=== PATIENT | female | born 1975 | race Caucasian/White ===

== ENCOUNTER 2024-07-14 06:42 | Inpatient (IN) ==
--- NOTE | 2024-07-07 15:44 | Anesthesiology Consultation ---
Date of Service July 07, 2024 Assessment & Plan (1) Encounter for pre-operative examination: - Check BSG, test DOS - Infectious disease screening: Per assessment on 07/07/24- No known recent infectious disease contacts or current infectious disease symptoms. - General surgery visit (07/06/24): "Adenocarcinoma of sigmoid colon.. Clearly this needs to be resected. I should be able to accomplish this laparosco pically. I would use this time to also repair her umbilical hernia and if visible we will biopsy the liver lesion.. We will proceed in the near future with laparoscopic sigmoid colon resection, repair of umbilical hernia, plans for liver biopsy if visible." - S/P colonoscopy (06/30/24): MAC at [facility]. No issues noted per post-op anesthesia progress note. - Hx chronic spontaneous urticaria/angioedema * Allergy visit (04/13/24): "If patient's symptoms are inadequately controlled on an optimized regimen of antihistamine medications, patient would be a candidate for Xolair therapy moving forward" * Allergy addendum (06/19/24): "Lab evaluation for a bradykinin mediated causes of angioedema (hereditary angioedema and/or acquired angioedema) resulted negative, further supporting the patient is likely experiencing symptoms of chronic spontaneous urticaria/angioedema, for which continuing on a high dose regimen of antihistamines and/or Xolair would be beneficial." - Case reviewed with Dr. Laurent. Nothing further needed preoperatively regarding hx angioedema from his perspective. Spoke with patient via phone 07/07/24- She states that she has not had recurrence in angioedema (facial swelling) in several months- controlled/no angioedema since last 04/13/24 allergy visit. I advised patient to continue antihistamine regimen as normally directed preoperatively- she voiced understanding. Chart Review Chart Review: Acceptable Risk for Surgery (pending evaluation DOS) and Patient NOT seen in Pre Admission Testing History Surgery Operation Date: 07/14/24 08:20 Proposed Procedures p Laparoscopic Sigmoid Colectomy, Liver Biopsy, Umbilical Hernia Repair - Anant Lucas, DO Height/Weight Height: 5 ft 1.5 in Weight: 107.501 kg Allergies Allergy/AdvReac Type Severity Reaction Status Date / Time ciprofloxacin Allergy Intermediate Palms and Verified 07/07/24 15:19 soles- redness, itchy Sulfa (Sulfonamide Allergy Intermediate Hives Verified 07/07/24 14:00 Antibiotics) sulfamethoxazole Allergy Intermediate Hives Verified 07/07/24 14:00 [From Bactrim] trimethoprim [From Bactrim] Allergy Intermediate Hives Verified 07/07/24 14:00 dog dander Allergy Mild Itching Verified 07/07/24 14:00 fluvoxamine [From Luvox] Allergy Mild Vomiting Verified 07/07/24 15:19 grass pollen Allergy Mild Itching Verified 07/07/24 14:00 mold Allergy Mild Congested Verified 07/07/24 14:00 fish oil Allergy Unknown Some Verified 07/07/24 15:19 contain oyster- positive allergy test oyster extract Allergy Unknown Positive Verified 07/07/24 15:19 allergy test doxycycline Allergy Hives Verified 07/07/24 14:00 shellfish derived Allergy Positive Verified 07/07/24 15:19 allergy test liraglutide [From Saxenda] AdvReac Intermediate Insomnia Verified 07/07/24 14:00 loratadine [From Claritin] AdvReac Intermediate Blurry Verified 07/07/24 15:19 vision, racing heart, asthma symptoms nitrofurantoin AdvReac Intermediate Pain Verified 07/07/24 14:00 Medications Home Medications Medication Instructions Recorded Confirmed Last Taken blood pressure test kit-large #1 ea 12/07/22 07/06/24 Unknown metformin 500 mg tablet 500 mg PO BID 90 days #180 tabs 10/21/23 07/07/24 06/29/24 ziprasidone HCl 60 mg capsule 80 mg PO BID 11/18/23 07/07/24 06/28/24 albuterol sulfate 90 mcg/actuation 1 inh inhalation Q4H PRN shortness 12/03/23 07/07/24 06/23/24 aerosol inhaler of breath or wheezing #8.5 grams prazosin 2 mg capsule 2 mg PO HS 01/30/24 07/07/24 06/29/24 prazosin 5 mg capsule 5 mg PO HS 01/30/24 07/07/24 06/29/24 hydroxyzine HCl 25 mg tablet 25 mg PO TID PRN itching #90 tabs 05/04/24 07/07/24 06/29/24 acetaminophen 500 mg tablet 1,000 mg PO Q6H PRN Pain 06/23/24 07/07/24 Unknown cholecalciferol (vitamin D3) 50 50 mcg PO HS 06/23/24 07/07/24 06/28/24 mcg (2,000 unit) capsule clonazepam 1 mg tablet 1 mg PO DAILY PRN Anxiety 06/23/24 07/07/24 Unknown dextroamphetamine-amphetamine ER 20 mg PO BID 06/23/24 07/07/24 06/29/24 20 mg 24hr capsule,extend release (Adderall XR) diclofenac sodium 1 % topical gel 2 g topical QID #200 grams 06/23/24 07/07/24 Unknown (Voltaren Arthritis Pain) famotidine 20 mg tablet 20 mg PO DAILY PRN Acid Reflux 06/23/24 07/07/24 06/29/24 ibuprofen 200 mg tablet 400 mg PO Q6H PRN Pain 06/23/24 07/07/24 Unknown levothyroxine 25 mcg tablet 25 mcg PO QAM 06/23/24 07/07/24 06/29/24 melatonin 10 mg tablet 20 mg PO HS 06/23/24 07/07/24 06/29/24 rosuvastatin 20 mg tablet 20 mg PO QAM 06/23/24 07/07/24 06/29/24 valerian root 500 mg capsule 500 mg PO HS PRN Sleep 06/23/24 07/07/24 06/28/24 hydrochlorothiazide 12.5 mg tablet 12.5 mg PO QAM #30 tabs 06/29/24 07/07/24 06/28/24 trazodone 100 mg tablet 100 mg PO HS PRN Sleep 06/29/24 07/07/24 06/29/24 cetirizine 10 mg tablet 20 mg PO BID 07/06/24 07/07/24 Unknown Past Medical History Medical History Adenocarcinoma of sigmoid colon ADHD Allergic rhinitis Allergic rhinitis due to animals Allergic rhinitis due to dust mite Allergic rhinitis due to pollen Anxiety Arthralgia Asthma Bipolar 2 disorder Chronic idiopathic urticaria Chronic rhinitis Diverticular disease Diverticulitis Most recent 05/27/2024 ([facility]), subsequent colonoscopy (06/30/24, [facility]) noting sigmoid divertiulosis Hyperlipidemia Hypothyroidism Morbid obesity Post traumatic stress disorder Prediabetes Taking metformin Sleep apnea "Mild" Currently in the process of being testing in outpatient facility (had home test and was found to have sleep apnea)- no device at this time Thrombocytosis Follows with S hematology "likely reactive- at least partially due to iron deficiency but also noted to have elevated inflammatory markers" per 01/09/24 hematology televisit Urinary incontinence Urinary urgency Uterine fibroid Past Family History Family History Mother Diabetes Heart disease Myocardial infarction Father Brain tumor Allergic rhinitis Hypertension Grandmother (Maternal) Allergic rhinitis Other No family history of adverse response to anesthesia Denies family history of Ovarian cancer Prostate cancer Breast cancer Colorectal cancer Past Surgical History Surgical History H/O colonoscopy (06/30/24) History of dilatation and curettage History of tooth extraction Social History Smoking Status: Current every day smoker Smoking cigarettes per day: vaping (advised on policy) Do You Dip or Chew Tobacco: No Smoking End Date: quit cigs in 2022 Hx Alcohol Use: No Hx Substance Use: No substance use type: does not use Lab Results Anesthesia Preop Results Results Anesthesia Widget: WBC 7.82 K/ul (4.8-10.8) 07/06/24 Hgb 12.7 g/dl (12.0-16.0) 07/06/24 Hct 39.5 % (37.0-47.0) 07/06/24 Plt 473 K/uL (130-400) H 07/06/24 Na 137 mmol/L (136-145) 07/06/24 K 4.1 mmol/L (3.5-5.1) 07/06/24 Cl 100 mmol/L (98-107) 07/06/24 CO2 29 mmol/L (21-32) 07/06/24 BUN 7 mg/dl (6-23) 07/06/24 Creat 0.73 mg/dl (0.6-1.2) 07/06/24 Glucose Level 115 mg/dl (70-99(Fasting)) H 07/06/24 PT 10.6 Seconds (9.0-12.0) 07/06/24 INR 1.0 (0.9-1.1) 07/06/24 TSH 1.859 uIu/ml (0.300-4.500) 03/13/25 HA1c 5.7 % (4.5-5.6) H 06/04/24 Testing Electrocardiogram Date: 07/06/24 NSR at 89bpm. Rightward axis. Other Testing Abd/Pelvis CT Date: 05/27/24 Impression: 1. Acute diverticulitis. There is no sign of perforation or abscess formation 2. Small liver mass, new or more apparent. This could represent a benign hemangioma more evident due to differences in the phase of contrast enhancement, though a metastasis or other lesion is also possible. Liver protocol abdominal MRI with and without intravenous contrast could be considered for further evaluation 3. Fatty infiltration of the liver and hepatomegaly 4. Minimal right pleural effusion and minimal amount of ascites 5. Umbilical hernia containing only fat Chest CT Date: 07/03/24 IMPRESSION: Atelectatic changes in right lung base with a small subpleural nodule in posterior segment of right lower lobe. Considering the history of malignancy, this needs to be followed up. Liver shows ill defined hypodense areas which needs further evaluation with proper contrast phase. No CT evidence of adrenal or bony metastasis.
--- NOTE | 2024-07-14 06:56 | History & Physical Bridge Note ---
Date of Service July 14, 2024 History & Physical Bridge Note I have examined the patient, reviewed the History & Physical and in the interval since the performance of the History & Physical I have noted the following changes of clinical significance: no changes noted
[2024-07-14] MEDS: LR 15ML/HR IV SCH (07:36)
[2024-07-14] MEDS ORDERED: LIDOCAINE 2% 2 ML VIAL/AMP(20MG/ML) INFIL ONE ×3 (08:11→11:17)
[2024-07-14] MEDS ORDERED: ROCURONIUM BROMIDE 10 MG/ML 5 ML VIAL IV ONE (08:11)
[2024-07-14] MEDS ORDERED: PROPOFOL IV EMULSION 10 MG/ML 20 ML VIAL IV ONE ×3 (08:11)
[2024-07-14] MEDS ORDERED: fentaNYL citrate PF 100 MCG/2 ML VIAL ONE (08:12)
[2024-07-14] MEDS ORDERED: MIDAZOLAM HCL 1 MG/ML 2ML VIAL ONE (08:13)
[2024-07-14] MEDS ORDERED: KETAMINE HCL 10MG/ML SYR ONE (08:14)
[2024-07-14] MEDS ORDERED: METOCLOPRAMIDE HCL INJ 5 MG/ML 2 ML VIAL IV PRN (08:24)
[2024-07-14] MEDS ORDERED: HYDROmorphone INJ 2 MG/ML SYR/VIAL IV PRN (08:24)
[2024-07-14] MEDS ORDERED: PROMETHAZINE HCL 6.25 MG in SODIUM CHLORIDE 0.9% 50 ML IV PRN (08:24)
[2024-07-14] MEDS ORDERED: ePHEDrine sulfate 50 MG/ML AMP IV PRN (08:24)
[2024-07-14] MEDS ORDERED: ATROPINE SULFATE 0.1 MG/ML 10ML SYR IV PRN (08:24)
[2024-07-14] MEDS ORDERED: HYDROmorphone INJ 1 MG/ML SYRINGE IV PRN (08:24)
[2024-07-14] MEDS ORDERED: ONDANSETRON INJ 2 MG/ML 2 ML VIAL IV PRN (08:24)
--- NOTE | 2024-07-14 08:27 | Anesthesiology Consultation ---
Date of Service July 14, 2024 Assessment & Plan Chart Review Chart Review: Acceptable Risk for Surgery Consults Requested none ASA ASA3 Proposed Anesthesia Anesthesia Type: General History Surgery Operation Date: 07/14/24 08:20 Proposed Procedures p Laparoscopic Sigmoid Colectomy, Liver Biopsy, Umbilical Hernia Repair - Anant Lucas, DO Height/Weight Height: 5 ft 1.5 in Weight: 108.3 kg Allergies Allergy/AdvReac Type Severity Reaction Status Date / Time ciprofloxacin Allergy Intermediate Palms and Verified 07/14/24 07:10 soles- redness, itchy Sulfa (Sulfonamide Allergy Intermediate Hives Verified 07/14/24 07:10 Antibiotics) sulfamethoxazole Allergy Intermediate Hives Verified 07/14/24 07:10 [From Bactrim] trimethoprim [From Bactrim] Allergy Intermediate Hives Verified 07/14/24 07:10 dog dander Allergy Mild Itching Verified 07/14/24 07:10 fluvoxamine [From Luvox] Allergy Mild Vomiting Verified 07/14/24 07:10 grass pollen Allergy Mild Itching Verified 07/14/24 07:10 mold Allergy Mild Congested Verified 07/14/24 07:10 fish oil Allergy Unknown Some Verified 07/14/24 07:10 contain oyster- positive allergy test oyster extract Allergy Unknown Positive Verified 07/14/24 07:10 allergy test doxycycline Allergy Hives Verified 07/14/24 07:10 shellfish derived Allergy Positive Verified 07/14/24 07:10 allergy test liraglutide [From Saxenda] AdvReac Intermediate Insomnia Verified 07/14/24 07:10 loratadine [From Claritin] AdvReac Intermediate Blurry Verified 07/14/24 07:10 vision, racing heart, asthma symptoms nitrofurantoin AdvReac Intermediate Pain Verified 07/14/24 07:10 Medications Home Medications Medication Instructions Recorded Confirmed Last Taken blood pressure test kit-large #1 ea 12/07/22 07/06/24 Unknown metformin 500 mg tablet 500 mg PO BID 90 days #180 tabs 10/21/23 07/14/24 07/12/24 ziprasidone HCl 60 mg capsule 80 mg PO BID 11/18/23 07/14/24 07/13/24 17:00 albuterol sulfate 90 mcg/actuation 1 inh inhalation Q4H PRN shortness 12/03/23 07/14/24 07/14/24 05:00 aerosol inhaler of breath or wheezing #8.5 grams prazosin 2 mg capsule 2 mg PO HS 01/30/24 07/14/24 07/13/24 22:00 prazosin 5 mg capsule 5 mg PO HS 01/30/24 07/14/24 07/13/24 22:00 hydroxyzine HCl 25 mg tablet 25 mg PO TID PRN itching #90 tabs 05/04/24 07/14/24 07/14/24 05:00 acetaminophen 500 mg tablet 1,000 mg PO Q6H PRN Pain 06/23/24 07/14/24 07/13/24 15:00 cholecalciferol (vitamin D3) 50 50 mcg PO HS 06/23/24 07/14/24 07/12/24 mcg (2,000 unit) capsule clonazepam 1 mg tablet 1 mg PO DAILY PRN Anxiety 06/23/24 07/14/24 07/13/24 21:00 dextroamphetamine-amphetamine ER 20 mg PO BID 06/23/24 07/14/24 07/13/24 11:00 20 mg 24hr capsule,extend release (Adderall XR) diclofenac sodium 1 % topical gel 2 g topical QID #200 grams 06/23/24 07/14/24 1 Month Ago (Voltaren Arthritis Pain) ~06/13/24 famotidine 20 mg tablet 20 mg PO DAILY PRN Acid Reflux 06/23/24 07/14/2407/13 14:00 ibuprofen 200 mg tablet 400 mg PO Q6H PRN Pain 06/23/24 07/14/24 07/13/24 15:00 levothyroxine 25 mcg tablet 25 mcg PO QAM 06/23/24 07/14/24 07/13/24 09:00 melatonin 10 mg tablet 20 mg PO HS 06/23/24 07/14/24 07/13/24 21:00 rosuvastatin 20 mg tablet 20 mg PO QAM 06/23/24 07/14/24 07/13/24 09:00 valerian root 500 mg capsule 500 mg PO HS PRN Sleep 06/23/24 07/14/24 1 Week Ago ~07/07/24 hydrochlorothiazide 12.5 mg tablet 12.5 mg PO QAM #30 tabs 04/10/1607/14/24 07/12/24 trazodone 100 mg tablet 100 mg PO HS PRN Sleep 06/29/24 07/14/24 07/13/24 22:00 cetirizine 10 mg tablet 20 mg PO BID 07/06/24 07/14/24 07/14/24 05:00 phenazopyridine 95 mg tablet 95 mg PO TID PRN cystitis 07/14/24 07/14/24 07/13/24 18:00 Active Medications Generic Name Dose Route Start Last Admin Trade Name Garry PRN Reason Stop Dose Admin Lactated Ringer's 1,000 mls @ 15 mls/hr 07/14/24 06:00 07/14/24 07:36 Lr IV 07/15/24 05:59 15 mls/hr .Q24H MARYLOU Administration NPO Date Last Intake of Fluids: 07/13/24 Time Last Intake of Fluids: 23:59 Date Last Intake of Solids: 07/13/24 Time Last Intake of Solids: 20:00 Past Medical History Medical History Adenocarcinoma of sigmoid colon ADHD Allergic rhinitis Allergic rhinitis due to animals Allergic rhinitis due to dust mite Allergic rhinitis due to pollen Anxiety Arthralgia Asthma Bipolar 2 disorder Chronic idiopathic urticaria Chronic rhinitis Diverticular disease Diverticulitis Most recent 05/27/2024 ([facility]), subsequent colonoscopy (06/30/24, [facility]) noting sigm oid divertiulosis Hyperlipidemia Hypothyroidism Morbid obesity Post traumatic stress disorder Prediabetes Taking metformin Sleep apnea "Mild" Currently in the process of being testing in outpatient facility (had home test and was found to have sleep apnea)- no device at this time Thrombocytosis Follows with [facility] hematology "likely reactive- at least partially due to iron deficiency but also noted to have elevated inflammatory markers" per 01/09/24 hematology televisit Urinary incontinence Urinary urgency Uterine fibroid Exercise / Class Metabolic Activity II 4-5 Yardwork/Stairs/Walk up hill Past Family History Family History Mother Diabetes Heart disease Myocardial infarction Father Brain tumor Allergic rhinitis Hypertension Grandmother (Maternal) Allergic rhinitis Other No family history of adverse response to anesthesia Denies family history of Ovarian cancer Prostate cancer Breast cancer Colorectal cancer Past Surgical History Surgical History H/O colonoscopy (06/30/24) History of dilatation and curettage History of tooth extraction Past Anesthesia History No Hx of Anesthesia Complications History of PONV No Hx of PONV Social History Smoking Status: Current every day smoker Smoking cigarettes per day: vaping (advised on policy) Do You Dip or Chew Tobacco: No Smoking End Date: quit cigs in 2022 Hx Alcohol Use: No Hx Substance Use: No substance use type: does not use Review of Systems ROS Unobtainable: All systems reviewed & are unremarkable except as noted in HPI & below Physical Exam Vital Signs Last Vital Signs Temp 36.7 C 07/14/24 07:07 Pulse 88 07/14/24 07:07 Resp 20 07/14/24 07:07 BP 120/79 07/14/24 07:07 Pulse Ox 95 07/14/24 07:07 O2 Del Method Room Air 07/14/24 07:07 Constitutional + obese; no acute distress ENMT Mouth: + TMJ abnormality Thyromental Distance: < 3.5 Finger Breadths Mallampati Class: II Neck normal visual inspection Respiratory normal respiratory effort Auscultation: lungs clear to auscultation bilaterally Cardiovascular Rate/Rhythm: regular rate and regular rhythm Neurologic moves all extremities Psychiatric Orientation: alert and oriented x 3 Testing Laboratory Results Blood Type O Negative 07/14/24 06:47 Antibody Screen NEGATIVE 07/14/24 06:47 07/14/24 07:13 POC Glucose 95 07/14/24 06:40 POC Ur Test NEG Electrocardiogram Date: 07/06/24 NSR at 89bpm. Rightward axis. Other Testing Abd/Pelvis CT Date: 05/27/24 Impression: 1. Acute diverticulitis. There is no sign of perforation or abscess formation 2. Small liver mass, new or more apparent. This could represent a benign dharmesh ngioma more evident due to differences in the phase of contrast enhancement, though a metastasis or other lesion is also possible. Liver protocol abdominal MRI with and without intravenous contrast could be considered for further evaluation 3. Fatty infiltration of the liver and hepatomegaly 4. Minimal right pleural effusion and minimal amount of ascites 5. Umbilical hernia containing only fat Chest CT Date: 07/03/24 IMPRESSION: Atelectatic changes in right lung base with a small subpleural nodule in posterior segment of right lower lobe. Considering the history of malignancy, this needs to be followed up. Liver shows ill defined hypodense areas which needs further evaluation with proper contrast phase. No CT evidence of adrenal or bony metastasis.
[2024-07-14] MEDS: ceFAZolin 2000MG 2,000 MG/15 ML SYR IV SCH ×2 (08:50→16:35)
[2024-07-14] MEDS ORDERED: DEXAMETHASONE SOD INJ 4 MG/ML VIAL ONE (08:56)
[2024-07-14] MEDS ORDERED: ONDANSETRON INJ 2 MG/ML 2 ML VIAL ONE (08:56)
[2024-07-14] MEDS ORDERED: HYDROmorphone INJ 2 MG/ML SYR/VIAL ONE (09:48)
[2024-07-14] MEDS: BUPIVACAINE/EPINEPHRINE 0.5% MPF 1:200,000 30 ML VIAL ONE (11:52)
--- NOTE | 2024-07-14 12:48 | Cancer Operative Report ---
Post Operative Report Pre & Post Diagnosis Operation Date: 07/14/24 08:20 Pre-Op Diagnosis: Adenocarcimona of Sigmoid Colon, Liver Lesion, Umbillical Hernia Post-Op Diagnosis: Adenocarcimona of Sigmoid Colon, Liver Lesion, Umbillical Hernia I identified the patient and participated in the time-out.: Yes Procedure Operation Date: 07/14/24 08:20 Actual Procedures p Laparoscopic Low Anterior rectosigmoid Colectomy, Liver Biopsy, Umbilical Hernia Repair(Not Applicable) ( 2 cm); partial omentectomy- Anant Lucas DO Surgeon Anant Lucas DO Fringing Machine Operator lazaro White Estimated Blood Loss 50 Findings Consistent with Post-Op Diagnosis Specimens 1. rectosigmoid 2. additional proximal colon 3. distal anastomotic donut 4. left lobe liver biopsy 5. portion of omentum Description of Procedure After informed consent was obtained the patient was taken to the operating suite and placed in supine position. After successful intubation a Shah catheter was placed sterilely. The patient was then placed into a low lithotomy position. The arms were tucked. The entire abdomen and perineum were sterilely prepped and draped in usual fashion. I began with an infraumbilical incision with a 15 blade scalpel. This was carried down through the soft tissue using cautery. Once we get down to the fascia I immediately encountered a hernia and hernia sac. I excised the hernia sac and 360 degrees exposing some incarcerated omentum that appeared to be ischemic. The hernia itself measured approximately 2 cm. After excising the hernia sac I then slowly came through a portion of the omentum using clamp and tie as well as cautery. We did send this as a separate specimen since this was an oncologic case. Once I excised the infarcted portion of omentum I then placed 0 Vicryl stay sutures on the fascial edges of the hernia. A finger sweep was performed and a 12 mm Merrill trocar was placed. The abdomen was insufflated to 20 mmHg. Laparoscope was inserted and the abdomen was examined 360 degrees. There was some residual tattooing throughout the abdomen. There were also 2 small probably 2 cm liver lesions 1 on the left lobe and 1 on the right lobe. There was no evidence of any metastatic disease elsewhere. Next we placed the patient into a Trendelenburg position and slightly airplaned to the right. A right lower quadrant 12 mm trocar a right mid abdominal 5 mm trocar eventually a left lower quadrant 5 mm trocar and a left upper quadrant 5 mm trocar would all be placed. I began by identifying the tattoo hart of the sigmoid colon. The distal madelin was lower than I had anticipated. I was able to mobilize the sigmoid colon along the white line of Toldt up to almost the splenic flexure. I carried this down over the pelvic brim and well past the peritoneal reflection. I began by creating a window in the mesentery approximately 5 cm proximal to the proximal tattoo madelin. A MOISES purple cartridge stapler was then used to transect the colon at this point. We began slowly taking down the mesentery including the inferior mesenteric vessels staying as low as possible using the sonocision. Continue to use traction countertraction blunt dissection and harmonic scalpel were able to come down the mesentery until we were down to the distalmost tattoo madelin. This was essentially down to the proximal rectum. At this point I was able to use several firings of a reticulating MOISES purple cartridge to transect the rectum distal to the distal tattoo madelin. I finished mobilizing the proximal colon and then we extended the left lower quadrant trocar incision including the fascia using cautery. We were able to remove the specimen and sent it to the back table where I would eventually open it to verify at least gross margins. After this we delivered the proximal stapled end of the sigmoid colon. We had mobilized more than we needed and to incorporate additional colon as well as lymph nodes we transected an additional several inches of colon and mesentery and sent this as additional proximal colon. Once we did this we then used 2-0 silk to create a handsewn pursestring. We used sizers to estimate the size of the lumen to be 25 mm. The anvil of a 25 mm circular stapler was inserted into this end of the colon and secured using the pursestring device. We dunked this back into the abdominal cavity and changed our gloves. Next I closed the fascia of this incision using #1 PDS in running fashion. At this point we re- insufflated the abdomen. The anvil laid over the pelvic brim nicely and the anastomosis would have no tension. We then brought sizers in through the rectum followed by the handle of the circular stapler. We deployed the spike anterior to the staple line and connected it to the anvil without any tension. It was secured and fired creating a functional end-to-end anastomosis. Both donuts were intact and we sent the distalmost donut as additional distal margin. We then inflated the colon under water in the pelvis. There was no evidence of any anastomotic leak. At this point we thoroughly irrigated the lower half of the abdomen as well as the pelvis. There was adequate hemostasis. Anastomosis was intact with no evidence of ischemia. At this point I performed a biopsy of the liver lesion on the left lobe. We used the harmonic scalpel to remove this in its entirety and use cautery to control a small amount of bleeding. This was sent as liver nodule excisional biopsy. A final irrigation was performed. A 10 flat Ruddy-Balbuena drain was placed into the pelvis and brought out through the right lower quadrant trocar site. It was secured to the skin using 0 Vicryl. The remainder of the trocars were removed under direct visualization. The fasc ia of the umbilical hernia was closed using #1 Ethibond in simple erupted fashion. The wound was irrigated and closed using 3-0 Vicryl for deep layers and 4-0 Monocryl for skin. The remainder of the incisions were irrigated and closed using a skin stapler. The larger left lower quadrant incision was closed over quarter inch [place] drain. Sterile dressings were applied. The patient was awakened extubated and transferred to recovery in stable condition. My nurse practitioner was present through the entire case and was instrumental in helping to gain access, assisting with running the camera, providing exposure, assisting with the anastomosis, wound closure and dressing placement. Colon Resection Operation performed with curative intent: Yes Extent of colon and vascular resection: Sigmoid resection inferior mesenteric and Other (explain) (lower anterior. specimen included sigmoid colon and porti on of rectum below peritoneal reflection.) I attest to the content of the Intraoperative Record and any orders documented therein. Any exceptions are noted below.
[2024-07-14] MEDS: fentaNYL citrate PF 100 MCG/2 ML VIAL IV PRN (13:02)
[2024-07-14] MEDS ORDERED: CARBOHYDRATES FOR HYPOGLYCEMIA PO PRN (13:44)
[2024-07-14] MEDS ORDERED: clonazePAM 1 MG TAB PO PRN (13:44)
[2024-07-14] MEDS ORDERED: GLUCAGON FOR INJ 1 MG VIAL SQ PRN (13:44)
[2024-07-14] MEDS ORDERED: GLUCOSE 40% GEL 15 GM TUBE PO PRN (13:44)
[2024-07-14] MEDS ORDERED: GLUCOSE 10 TAB/TUBE PO PRN (13:44)
[2024-07-14] MEDS ORDERED: PROMETHAZINE 6.25 MG/50.25 ML BAG IV PRN (13:44)
[2024-07-14] MEDS ORDERED: PHARMACY GLYCEMIC MGMT CONSULT PRN (13:44)
[2024-07-14] MEDS ORDERED: DEXTROSE 50% 50 ML SYRINGE IV PRN (13:44)
[2024-07-14] MEDS: LACTATED RINGER'S 1,000 ML IV SCH (14:05)
[2024-07-14] MEDS: HYDROmorphone INJ 0.5 MG/0.5 ML SYR IV PRN ×2 (14:10→21:47)
--- NOTE | 2024-07-14 14:38 | Anesthesiology Progress Note ---
Date of Service July 14, 2024 Anesthesia Post Procedure Vital Signs Vital Signs: Temp Pulse Pulse Resp BP Pulse Ox O2 Del Method 07/14/24 14:15 36.6 C 86 16 129/82 94 Nasal Cannula 07/14/24 13:45 36.5 C 82 16 131/85 96 Nasal Cannula 07/14/24 13:20 92 H 15 140/85 94 Nasal Cannula 07/14/24 13:10 89 14 131/84 94 Nasal Cannula 07/14/24 13:00 87 12 129/77 93 Nasal Cannula 07/14/24 12:50 36.5 C 85 14 131/77 97 Nasal Cannula 07/14/24 12:40 86 16 113/74 93 Oxymask 07/14/24 12:30 93 H 15 135/80 94 Oxymask 07/14/24 12:20 90 16 113/70 94 Oxymask 07/14/24 12:13 36.6 C 92 H 16 96/74 L 92 Oxymask 07/14/24 07:07 36.7 C 88 20 120/79 95 Room Air O2 Flow Rate 07/14/24 14:15 2 07/14/24 13:45 2 07/14/24 13:20 2 07/14/24 13:10 2 07/14/24 13:00 2 07/14/24 12:50 3 07/14/24 12:40 5 07/14/24 12:30 10 07/14/24 12:20 15 07/14/24 12:13 15 07/14/24 07:07 Pain Intensity Abdomen: Pain Intensity: 3 Transfer of Care Handoff Completed per policy Notes Mental Status: alert / awake / arousable Patient Amnestic to Procedure: Yes Nausea / Vomiting: adequately controlled Pain: adequately controlled Airway Patency, RR, SpO2: stable & adequate BP & HR: stable & adequate Hydration State: stable & adequate Anesthetic Complications: no major complications apparent and Pt Satisfied with anesthetic care
--- NOTE | 2024-07-14 15:12 | Pharmacy Report ---
Pharmacy Glycemic Short Note 2 - Date of Service July 14, 2024 - Glycemic Short BSG Results (Last 24 hours): 07/14/24 07/14/24 07:13 13:51 POC Glucose 95 143 H OUTPATIENT ANTIDIABETIC REGIMEN: * metformin 500mg BID * HbA1c 5.7% (06/04/24) ASSESSMENT: * Mona is a 49 year old female admitted status post colectomy/hernia repair/liver biopsy with a history of prediabetes. * Fasting BSG this AM within goal range, postoperative BSG increased slightly to 143mg/dL, no steroids appear to have been given. * NovoLog initiated at about a weight based stress of 1.5mg/dL. Hold basal insulin at this time. Looser goal range while NPO. PLAN FOR INPATIENT GLYCEMIC CONTROL: * Hold outpatient oral diabetes medications * Basal insulin * hold basal insulin * Bolus insulin * NovoLog per scale ACHS or Q6hrs while NPO * Goal Range: Low 120 mg/dL - High 160 mg/dL * Correction Factor: 35 mg/dL/unit * Nutritional / Prandial insulin per carb ratio of 1 unit per 12 grams CHO consumed
[2024-07-14] MEDS: oxyCODONE/ACETAMINOPHEN 5mg/325mg TAB PO PRN (16:22)
[2024-07-14] MEDS: INSULIN ASPART PER UNIT CHARGE SC SCH (17:55)
[2024-07-14] MEDS: ACETAMINOPHEN 1,000 MG/100 ML VIAL IV PRN (19:50)
[2024-07-14] MEDS: CETIRIZINE HCL 10 MG TABLET PO SCH (21:29)
[2024-07-14] MEDS: DEXTROAMPHETAMINE/AMPHETAMINE ER 20 MG CAP PO SCH (21:30)
[2024-07-14] MEDS: MELATONIN 3 MG TAB PO SCH (21:46)
[2024-07-14] MEDS: traZODone HCL 100 MG TAB PO PRN (21:47)
[2024-07-14] MEDS: FAMOTIDINE 20 MG TAB PO PRN (22:36)
[2024-07-15] MEDS: ALBUTEROL HFA 8 GM INHALER INH PRN (01:41)
[2024-07-15] MEDS: oxyCODONE/ACETAMINOPHEN 5mg/325mg TAB PO PRN (02:52)
[2024-07-15] MEDS: hydrOXYzine HCl 25 MG TAB PO PRN (04:29)
[2024-07-15] MEDS: LEVOTHYROXINE SODIUM 25 MCG TABLET PO SCH (06:12)
[2024-07-15] MEDS: LORazepam 2 MG/1 ML VIAL IV PRN (07:35)
--- NOTE | 2024-07-15 07:36 | Surgery Progress Note ---
Date of Service July 15, 2024 Assessment & Plan (1) History of bowel resection: Plan: POD 1 Laparoscopic Sigmoid Colectomy, Liver Biopsy, Umbilical Hernia Repair with Dr Lucas 07/14/24 abd discomfort /spasms ordered Ativan IV 0.5mg Q12h IV fluids for hydration Am Labs not drawn yet, will follow up tachycardia 112, afebrile waiting return of bowel function prior to starting diet , can contin. sips/chips OOB to chair later today Pt seen and examined with Dr Lucas as above. doing as expected. will add some ativan for muscle spasm. keep torres one more day. Admission and Anticipated Discharge Date Admission Date: July 14, 2024 Subjective abd discomfort /spasms no n/v no bm Review of Systems Gastrointestinal: + abdominal pain; no vomiting Physical Exam Constitutional: cooperative; no acute distress and + uncomfortable Respiratory: normal respiratory effort; no respiratory distress Psychiatric: Orientation: alert and oriented x 3 Results & Data Vital Signs (Past 12 Hours) Vital Signs Temp Pulse Resp BP Pulse Ox O2 Del Method 07/15/24 02:45 99.7 F H 112 H 16 108/71 93 Room Air 07/15/24 01:41 108 H 18 96 Room Air 07/14/24 22:35 98.1 F 107 H 18 103/69 95 Room Air 07/14/24 19:35 Room Air PG Care Time/CCT Total # of Minutes Spent Total Time Spent with Patient: Total time spent is greater than 50% in coordination of care (as documented) at patient's floor/unit and/or counseling patient: Coding Level of Care Code 02890 Post Operative Follow-Up Diagnoses History of bowel resection Z90.49
[2024-07-15] MEDS: hydroCHLOROthiazide 25 MG TAB PO SCH (07:49)
[2024-07-15] MEDS: ROSUVASTATIN CALCIUM 20 MG TAB PO SCH (07:49)
[2024-07-15] MEDS: ziprasidone HCL 80 MG CAP PO SCH (07:49)
--- NOTE | 2024-07-15 09:13 | Pharmacy Report ---
Pharmacy Glycemic Short Note 2 - Date of Service July 15, 2024 - Glycemic Short BSG Results (Last 24 hours): 07/14/24 07/14/24 07/15/24 13:51 17:51 00:14 POC Glucose 143 H 123 H 116 H 07/15/24 06:02 POC Glucose 111 H OUTPATIENT ANTIDIABETIC REGIMEN: * metformin 500mg BID * HbA1c 5.7% (06/04/24) ASSESSMENT: 07/15: * Natividad did not receive any insulin in 24 hours * Fasting BSG this AM within goal range, continue to hold basal insulin * Unable to assess NovoLog at this time as no insulin given, will remove carbohydrate ratio for now and continue to monitor as diet advances. NPO until bowels move per surgery progress notes. Look to restart home metformin once diet tolerated. 07/14: * Mona is a 49 year old female admitted status post colectomy/hernia repair/liver biopsy with a history of prediabetes. * Fasting BSG this AM within goal range, postoperative BSG increased slightly to 143mg/dL, no steroids appear to have been given. * NovoLog initiated at about a weight based stress of 1.5mg/dL. Hold basal insulin at this time. Looser goal range while NPO. PLAN FOR INPATIENT GLYCEMIC CONTROL: * Hold outpatient oral diabetes medications * Basal insulin * hold basal insulin * Bolus insulin * NovoLog per scale ACHS or Q6hrs while NPO * Goal Range: Low 120 mg/dL - High 160 mg/dL * Correction Factor: 35 mg/dL/unit * Nutritional / Prandial insulin per carb ratio of 1 unit per NONE grams CHO consumed
[2024-07-15 10:28] LABS: Basophils # (auto) 0.02 K/uL (0.00-0.20); Basophils % (auto) 0.2 %; Hematocrit (blood only) 31.6 % (37.0-47.0); Hemoglobin 10.2 g/dl (12.0-16.0); Immature Granulocytes # (auto) 0.07 K/uL (0.01-0.20); Immature Granulocytes % (auto) 0.6 %; Lymphocytes % (auto) 12.9 %; Mean Corpuscular Hemoglobin 26.1 pg (25.0-34.0); Mean Corpuscular Hgb Conc 32.3 g/dL (32.0-36.0); Mean Corpuscular Volume 80.8 fL (80.0-100.0); Mean Platelet Volume 9.9 fL (9.4-12.4); Monocytes % (auto) 9.7 %; Neutrophils # (auto) 9.52 K/uL (1.40-6.50); Neutrophils % (auto) 76.6 %; Platelet Count 413 K/uL (130-400); RDW Coefficient of Variation 15.7 % (11.5-14.5); RDW Standard Deviation 45.9 fL (36.4-46.3); Red Blood Count 3.91 M/uL (4.20-5.40); White Blood Count 12.41 K/ul (4.8-10.8)
[2024-07-15 10:32] LABS: Albumin Globulin Ratio 1.2 (0.9-2); Albumin Level 3.3 gm/dl (3.4-5.0); BUN Creatinine Ratio 8.3 (10-20); Bilirubin,Total 0.3 mg/dl (0.2-1.0); Calcium 8.4 mg/dl (8.6-10.3); Creatinine Clr Calc Pharmacy 131.6 ml/min; Globulin 2.7 gm/dl (2.5-4.0); Potassium 4.1 mmol/L (3.5-5.1)
[2024-07-15] MEDS: LACTATED RINGER'S 1,000 ML IV SCH (12:30)
[2024-07-15] MEDS: PHENAZOPYRIDINE HCL 100 MG TAB PO PRN (14:25)
[2024-07-15] MEDS ORDERED: PRAZOSIN HCL 1 MG CAP PO SCH (21:00)
[2024-07-15] MEDS: PRAZOSIN HCL 1 MG CAP PO SCH (21:08)
[2024-07-15 21:48] LABS: Appearance Urine Clear (Clear); Bacteria Urine Automated None Seen (None Seen); Bilirubin Urine Negative (Negative); Blood Urine Trace (Negative); Cast Urine Automated 0-2 /lpf (0-2); Color Urine Dark Yellow; Glucose Urine UA Negative (Negative); Ketones Urine Negative (Negative); Leukocyte Esterase Urine Negative (Negative); Nitrite Urine Positive (Negative); Protein Urine Negative (Negative); Specific Gravity Urine 1.012 (1.000-1.030); Urobilinogen Urine Negative (Negative); WBC Urine Automated 0-5 /hpf (0-5); pH Urine 6.5 (4.5-7.5)
--- NOTE | 2024-07-16 02:12 | Communication Note ---
Date of Service: July 16, 2024 I was notified by nurse that patient is currently n.p.o. and had a BSG checked which was 77. Patient does take Glucophage for diabetes but currently this medication is not ordered due to her n.p.o. status. Nursing staff was concerned about patient potentially developing hypoglycemia. I visited with the patient at the bedside and she was asymptomatic in regard to her PSG and did not offer any complaints. I did discuss the warning signs of hypoglycemia with the patient and instructed her to call nursing staff if she feels that these are developed. I would prefer not to add dextrose patient's intravenous fluids at this time as or precipitate any hyperglycemia that would impede surgical healing. At the present time we will perform Accu-Cheks every 2 hours and will act accordingly if patient develops any symptomatology concerning for hypoglycemia. Of note, the patient did have a repeat PSG checked which was 83.
[2024-07-16 07:31] LABS: Basophils # (auto) 0.04 K/uL (0.00-0.20); Basophils % (auto) 0.4 %; Eosinophils # (auto) 0.07 K/uL (0.00-0.50); Eosinophils % (auto) 0.8 %; Hematocrit (blood only) 30.8 % (37.0-47.0); Hemoglobin 9.9 g/dl (12.0-16.0); Immature Granulocytes # (auto) 0.06 K/uL (0.01-0.20); Immature Granulocytes % (auto) 0.7 %; Lymphocytes # (auto) 2.05 K/uL (1.20-3.40); Lymphocytes % (auto) 22.6 %; Mean Corpuscular Hemoglobin 25.8 pg (25.0-34.0); Mean Corpuscular Hgb Conc 32.1 g/dL (32.0-36.0); Mean Corpuscular Volume 80.4 fL (80.0-100.0); Mean Platelet Volume 10.1 fL (9.4-12.4); Monocytes # (auto) 1.08 K/uL (0.11-0.59); Monocytes % (auto) 11.9 %; Neutrophils # (auto) 5.78 K/uL (1.40-6.50); Neutrophils % (auto) 63.6 %; Platelet Count 376 K/uL (130-400); RDW Coefficient of Variation 15.7 % (11.5-14.5); RDW Standard Deviation 45.3 fL (36.4-46.3); Red Blood Count 3.83 M/uL (4.20-5.40); White Blood Count 9.08 K/ul (4.8-10.8)
[2024-07-16 07:36] LABS: Albumin Globulin Ratio 1.1 (0.9-2); Albumin Level 3.1 gm/dl (3.4-5.0); BUN Creatinine Ratio 11.1 (10-20); Bilirubin,Total 0.5 mg/dl (0.2-1.0); Calcium 8.1 mg/dl (8.6-10.3); Creatinine Clr Calc Pharmacy 146.2 ml/min; Globulin 2.7 gm/dl (2.5-4.0); Potassium 3.5 mmol/L (3.5-5.1); Total Protein 5.8 gm/dl (6.0-8.3)
--- NOTE | 2024-07-16 10:25 | Surgery Progress Note ---
Date of Service July 16, 2024 Assessment & Plan (1) S/P laparoscopic colectomy: Plan: POD2 doing as expected. awaiting return of bowel fx will start clears today will start lovenox for dvt prophylaxis. Admission and Anticipated Discharge Date Admission Date: July 14, 2024 Subjective pt seen. spasms much better today. no n/v. no new complaints. ambulating to bathroom with no issue Physical Exam Physical Exam: alert. nad abd: soft. expected tenderness. wounds look good. EDWARD with pink serous output. Results & Data Vital Signs (Past 12 Hours) Vital Signs Temp Pulse Pulse Resp BP Pulse Ox O2 Del Method 07/16/24 07:48 36.8 C 98 H 18 107/74 96 Nasal Cannula 07/16/24 05:41 111 H 18 87 L Room Air O2 Flow Rate 07/16/24 07:48 2 07/16/24 05:41 PG Care Time/CCT Total # of Minutes Spent Total Time Spent with Patient: Total time spent is greater than 50% in coordination of care (as documented) at patient's floor/unit and/or counseling patient: Coding Level of Care Code 33496 Post Operative Follow-Up Diagnoses S/P laparoscopic colectomy Z90.49
[2024-07-16] MEDS: ENOXAPARIN INJ 40 MG/0.4 ML SYR SQ SCH (11:48)
[2024-07-16] MEDS: INSULIN ASPART PER UNIT CHARGE SC SCH (12:24)
--- NOTE | 2024-07-16 18:49 | Consultation ---
Date of Consultation July 16, 2024 Assessment & Plan (1) Malignant neoplasm of colon metastatic to liver: (2) S/P laparoscopic colectomy: (3) H/O umbilical hernia repair: (4) History of liver biopsy: (5) Vapes nicotine containing substance: (6) Prediabetes: (7) Obesity, morbid, BMI 40.0-49.9: (8) Hypothyroidism (acquired): (9) Asthma: (10) ADD (attention deficit disorder): (11) Bipolar affective disorder: (12) Generalized anxiety disorder: (13) Hypertension: (14) Dyslipidemia: (15) Hypothyroidism: (16) Chronic idiopathic urticaria: Plan 49yo female with recently diagnosed adenocarcinoma of the sigmoid colon with liver & lymph node mets - s/p laparoscopic colectomy of the primary tumor site by Dr Lucas on 07/14/24 - along with morbid obesity, BMI, chronic vaping, prediabetes, fatty liver, hypothyroidism, asthma, ADD, HTN, hyperlipidemia, and bipolar disorder type 2. The primary surgical team consulted the hospitalist team to assist with her complex medication management. During my initial consult she complained of multiple pulmonary symptoms in cluding cough, congestion, wheezing, and mild dyspnea. #wheezing, dyspnea, cough - * likely due to asthma * does not examine in CHF * atelectasis could be contributing * I cannot rule out acute PE(s) - she is mildly tachycardic, she has family hx PE (mother in her 50s), and has active cancer with recent surgery for such; low threshold to check CTA chest to r/o PE * xopenex nebs q8h prn * incentive spirometer; add flutter valve * add mucinex BID * check VBG - r/o hypercapnia #tachycardia - * patient reports she has tachycardia frequently on chronic basis * EKG today with sinus tach, but no other changes * recent TSH (05/2024) wnl * H/H mildly low but acceptable * pain could be contributing * ADD meds can cause tachycardia * cannot rule out acute PE(s) - see above * low threshold to place on telemetry if any worsening #stage 4 colon ca with mets to liver (biopsy-confirmed) & lymph nodes - * defer diet advancement, pain management, disposition to primary gen surg team * will need heme/onc referral at discharge #bipolar disorder / generalized anxiety / PTSD / ADD - * PDMP confirms she takes clonazepam 1mg BID * in light of sleepiness and numerous other SAND CASTER agents that can cause sedation will lower dose to 0.5mg BID; this will prevent benzo withdrawal * stop IV ativan * cont trazodone prn * cont ziprasidone BID * cont prazosin (used for night-nunes, PTSD?) * would hold her ADD meds for now if patient agreeable to such #vaping - * nicoderm patch 14mg/day #sleepiness / mild lethargy - * check VBG, r/o hypercapnia * BIPAP if needed * if pCO2 is normal then sleepiness likely due to polypharmacy * patient had asked for benadryl to be ordered; deferred due to high-dose zyrtec and availability of atarax prn * patient had asked for dosing of her atarax to be changed (she requested 75mg rather than 25mg); deferred once again due to high-dose zyrtec administration #pre-DM - * last hemoglobin a1c 5.7% in May 2024 * DM diet * novolog SSI * pharmacy consulted for management #hypothyroidism - * TSH wnl in May 2024 * cont synthroid #anemia - * suspect she has underlying Iron deficiency due to chronic rectal bleeding from her colon ca * acute blood loss also contributed * consider Fe studies while here * repeat CBC am #DVT proph - * currently lovenox 40mg daily * given her BMI of 44 consider increasing to 40mg BID Thank you for this consult. We will follow with you. I have asked the android developer physician to check in on Ms Chicas late this evening. Plan of care d/w android developer. History of Present Illness Requesting Physician: Dr Anant Lucas Reason for Consultation: medication management, asthma Attending Physician: Anant Lucas, DO History of Present Illness 49yo female with recently diagnosed colon cancer with liver & lymph node mets - s/p laparoscopic colectomy of the primary tumor site by Dr Lucas on 07/14/24 - along with morbid obesity, BMI, chronic vaping, prediabetes, fatty liver, hypothyroidism, asthma, ADD, HTN, hyperlipidemia, and bipolar disorder type 2. The primary surgical team consulted the hospitalist team to assist with her complex medication management. During my assessment the patient was resting in bed. She was sleepy but able to carry a conversation and answer all questions. She complained of cough, congestion, wheezing and mild dyspnea. Symptoms started earlier today. Denied chest pain; denied pleuritic pain. She states the symptoms remind her of her asthma and asks specifically for a neb treatment. In addition to the above we discussed use of nicoderm patch and she was agreeable to such. She previously used cigarettes for many years, then quit such and changed to vaping. With respect to her abdomen she complains of bloating. She has not passed any flatus. She has mild incisional pain. No vomiting. Tolerating clear liquids. Patient has been told she snores but has never had a formal dx of PIPPA. Allergies Allergy/AdvReac Type Severity Reaction Status Date / Time ciprofloxacin Allergy Intermediate Palms and Verified 07/14/24 07:10 soles- redness, itchy Sulfa (Sulfonamide Allergy Intermediate Hives Verified 07/14/24 07:10 Antibiotics) sulfamethoxazole Allergy Intermediate Hives Verified 07/14/24 07:10 [From Bactrim] trimethoprim [From Bactrim] Allergy Intermediate Hives Verified 07/14/24 07:10 dog dander Allergy Mild Itching Verified 07/14/24 07:10 fluvoxamine [From Luvox] Allergy Mild Vomiting Verified 07/14/24 07:10 grass pollen Allergy Mild Itching Verified 07/14/24 07:10 mold Allergy Mild Congested Verified 07/14/24 07:10 fish oil Allergy Unknown Some Verified 07/14/24 07:10 contain oyster- positive allergy test oyster extract Allergy Unknown Positive Verified 07/14/24 07:10 allergy test doxycycline Allergy Hives Verified 07/14/24 07:10 shellfish derived Allergy Positive Verified 07/14/24 07:10 allergy test liraglutide [From Saxenda] AdvReac Intermediate Insomnia Verified 07/14/24 07:10 loratadine [From Claritin] AdvReac Intermediate Blurry Verified 07/14/24 07:10 vision, racing heart, asthma symptoms nitrofurantoin AdvReac Intermediate Pain Verified 07/14/24 07:10 Home Medications Medication Instructions Recorded Confirmed Type blood pressure test kit-large #1 ea 12/07/22 07/06/24 Rx metformin 500 mg tablet 500 mg PO BID 90 days #180 tabs 10/21/23 07/14/24 Rx ziprasidone HCl 60 mg capsule 80 mg PO BID 11/18/23 07/14/24 History albuterol sulfate 90 mcg/actuation 1 inh inhalation Q4H PRN shortness 12/03/23 07/14/24 Rx aerosol inhaler of breath or wheezing #8.5 grams prazosin 2 mg capsule 2 mg PO HS 01/30/24 07/14/24 History prazosin 5 mg capsule 5 mg PO HS 01/30/24 07/14/24 History hydroxyzine HCl 25 mg tablet 25 mg PO TID PRN itching #90 tabs 05/04/24 07/14/24 Rx acetaminophen 500 mg tablet 1,000 mg PO Q6H PRN Pain 06/23/24 07/14/24 History cholecalciferol (vitamin D3) 50 50 mcg PO HS 06/23/24 07/14/24 History mcg (2,000 unit) capsule clonazepam 1 mg tablet 1 mg PO DAILY PRN Anxiety 06/23/24 07/14/24 History dextroamphetamine-amphetamine ER 20 mg PO BID 06/23/24 07/14/24 History 20 mg 24hr capsule,extend release (Adderall XR) diclofenac sodium 1 % topical gel 2 g topical QID #200 grams 06/23/24 07/14/24 Rx (Voltaren Arthritis Pain) famotidine 20 mg tablet 20 mg PO DAILY PRN Acid Reflux 06/23/24 07/14/24 History ibuprofen 200 mg tablet 400 mg PO Q6H PRN Pain 06/23/24 07/14/24 History levothyroxine 25 mcg tablet 25 mcg PO QAM 06/23/24 07/14/24 History melatonin 10 mg tablet 20 mg PO HS 06/23/24 07/14/24 History rosuvastatin 20 mg tablet 20 mg PO QAM 06/23/24 07/14/24 History valerian root 500 mg capsule 500 mg PO HS PRN Sleep 06/23/24 07/14/24 History hydrochlorothiazide 12.5 mg tablet 12.5 mg PO QAM #30 tabs 06/29/24 07/14/24 Rx trazodone 100 mg tablet 100 mg PO HS PRN Sleep 06/29/24 07/14/24 History cetirizine 10 mg tablet 20 mg PO BID 07/06/24 07/14/24 History phenazopyridine 95 mg tablet 95 mg PO TID PRN cystitis 07/14/24 07/14/24 History Patient History Medical History (Updated 07/16/24 @ 21:12 by Serafin Doyle MD) Thrombocytosis Follows with [facility] hematology "likely reactive- at least partially due to iron deficiency but also noted to have elevated inflammatory markers" per 01/09/24 hematology televisit Morbid obesity Diverticular disease Adenocarcinoma of sigmoid colon Diverticulitis Most recent 05/27/2024 ([facility]), subsequent colonoscopy (06/30/24, [facility]) noting sigmoid divertiulosis Hypothyroidism Prediabetes Taking metformin Bipolar 2 disorder Post traumatic stress disorder Anxiety ADHD Hyperlipidemia Asthma Sleep apnea "Mild" Currently in the process of being testing in outpatient facility (had home test and was found to have sleep apnea)- no device at this time Chronic rhinitis Urinary urgency Urinary incontinence Arthralgia Chronic idiopathic urticaria Uterine fibroid Allergic rhinitis due to dust mite Allergic rhinitis due to animals Allergic rhinitis due to pollen Allergic rhinitis Surgical History (Updated 07/16/24 @ 21:05 by Serafin Doyle MD) S/P laparoscopic colectomy (07/14/24) Laparoscopic Low Anterior rectosigmoid Colectomy - Anant Lucas DO H/O umbilical hernia repair (07/14/24) Umbilical Hernia Repair ( 2 cm) - Anant Lucas DO Partial omentectomy- Anant Lucas DO History of liver biopsy (07/14/24) Liver Biopsy - Anant Lucas DO H/O colonoscopy (06/30/24) History of dilatation and curettage History of tooth extraction Family History (Updated 07/16/24 @ 21:06 by Serafin Doyle MD) Mother , age 56 from PE in the midst of a surgical procedure Diabetes Heart disease Myocardial infarction Pulmonary embolism Father Brain tumor Allergic rhinitis Hypertension Grandmother (Maternal) Allergic rhinitis Other No family history of adverse response to anesthesia Denies family history of Ovarian cancer Prostate cancer Breast cancer Colorectal cancer Social History (Updated 07/16/24 @ 21:06 by Serafin Doyle MD) Smoking Status: Current every day smoker Tobacco Type: E-cigarettes / Vaping Age Started Using Tobacco: 16; Age Quit Using Tobacco: 47; packs per day: 0.5; Cigarettes Per Day: vaping (advised on policy); Second Hand Exposure: No; Do You Dip or Chew Tobacco: No; Hx Alcohol Use: No Hx Substance Use: No Preferred Language: Tanzanian Communication Ability: Effective Visual Impairment: No Limitations Hearing Ability: Normal Associate Faculty Required: No Beliefs That Will Affect Care: None marital status: Single Current Living Situation: Family Current Living Situation Comment: lives with son in [place] current occupational status: unemployed How many Children do You have: 1 Feels Safe at Home: Yes Childhood Exposure to Second-Hand Smoke: Yes Diet: vegan during the past year weight has: decreased > 10 lbs Dental Care, Regularly: No Physical Activity Frequency: 1-2 Times per Week Seatbelt Use: always Sunscreen Use: Yes Assistive Devices: None Review of Systems Review of Systems: gen - considerable fatigue; no fevers or chills HENT - no nasal congestion; mild sore throat; no ear pain CV - no chest pain pulm - wheezing/cough/congestion/dyspnea GI - bloating, nausea - but no emesis; recent rectal bleeding x 1-2 months - had torres recently, now out and no LUTS musculo - denies joint pains neuro - no headache Physical Exam Physical Exam: gen - sleepy but able to answer all questions & follow commands; comfortable; no distress eyes - 2mm b/l, reactive, symmetric HENT - MM mildly dry, no lesions neck - no JVD, no lymph nodes heart - tachy, s1 s2, no murmur lungs - mild fine dry sounding b/l basilar rales; hint of end-exp wheezing; no increased work of breathing abd - distended, tympanic to percussion, BS+, incision arsen-umbilical clean; EDWARD drain in place; dressings in place lower abdomen ext - no edema, pulses b/l feet 2+ neuro - no focal deficits; strength 5/5 x 4 exts; DTRs 1+ b/l upper & lower exts skin - no rash Results & Data Vital Signs (Past 12 Hours) Vital Signs Temp Pulse Resp BP BP Pulse Ox O2 Del Method 07/16/24 16:09 85 18 96 Nasal Cannula 07/16/24 15:30 102 H 18 125/80 95 Room Air 07/16/24 10:23 Nasal Cannula 07/16/24 07:48 36.8 C 98 H 18 107/74 96 Nasal Cannula O2 Flow Rate 07/16/24 16:09 3 07/16/24 15:30 07/16/24 10:23 2 07/16/24 07:48 2 Laboratory Results Laboratory Results - last 24 hr 07/15/24 07/16/24 07/16/24 21:24 00:25 02:05 WBC RBC Hgb Hct MCV MCH MCHC RDW Std Deviation RDW Coeff of Jose Alfredo Plt Count MPV Immature Gran % (Auto) Neut % (Auto) Lymph % (Auto) [place] % (Auto) Eos % (Auto) Baso % (Auto) Neut # (Auto) Lymph # (Auto) [place] # (Auto) Eos # (Auto) Baso # (Auto) Immature Gran # (Auto) VBG pH VBG pCO2 VBG pO2 VBG HCO3 VBG O2 Saturation VBG Base Excess Sodium Potassium Chloride Carbon Dioxide Anion Gap BUN Creatinine Est Cr Clr Drug Dosing eGFR BUN/Creatinine Ratio Glucose POC Glucose 77 83 Calcium Magnesium Total Bilirubin AST ALT Alkaline Phosphatase Total Protein Albumin Globulin Albumin/Globulin Ratio Urine Color Dark Yellow Urine Appearance Clear Urine pH 6.5 Ur Specific [place] 1.012 Urine Protein Negative Urine Glucose (UA) Negative Urine Ketones Negative Urine Blood Trace H Urine Nitrite Positive A Urine Bilirubin Negative Urine Urobilinogen Negative Ur Leukocyte Esterase Negative Urine WBC (Auto) 0-5 Urine RBC (Auto) 6-10 H U Hyaline Cast (Auto) 0-2 U Epithel Cells (Auto) 6-10 H Urine Bacteria (Auto) None Seen 07/16/24 07/16/24 07/16/24 04:03 06:17 06:37 WBC 9.08 RBC 3.83 L Hgb 9.9 L Hct 30.8 L MCV 80.4 MCH 25.8 MCHC 32.1 RDW Std Deviation 45.3 RDW Coeff of Jose Alfredo 15.7 H Plt Count 376 MPV 10.1 Immature Gran % (Auto) 0.7 Neut % (Auto) 63.6 Lymph % (Auto) 22.6 [place] % (Auto) 11.9 Eos % (Auto) 0.8 Baso % (Auto) 0.4 Neut # (Auto) 5.78 Lymph # (Auto) 2.05 [place] # (Auto) 1.08 H Eos # (Auto) 0.07 Baso # (Auto) 0.04 Immature Gran # (Auto) 0.06 VBG pH VBG pCO2 VBG pO2 VBG HCO3 VBG O2 Saturation VBG Base Excess Sodium 136 Potassium 3.5 Chloride 99 Carbon Dioxide 31 Anion Gap 6 BUN 6 Creatinine 0.54 L Est Cr Clr Drug Dosing 146.2 eGFR 113.50 BUN/Creatinine Ratio 11.1 Glucose 91 POC Glucose 85 97 Calcium 8.1 L Magnesium Total Bilirubin 0.5 AST 16 ALT 12 Alkaline Phosphatase 78 Total Protein 5.8 L Albumin 3.1 L Globulin 2.7 Albumin/Globulin Ratio 1.1 Urine Color Urine Appearance Urine pH Ur Specific [place] Urine Protein Urine Glucose (UA) Urine Ketones Urine Blood Urine Nitrite Urine Bilirubin Urine Urobilinogen Ur Leukocyte Esterase Urine WBC (Auto) Urine RBC (Auto) U Hyaline Cast (Auto) U Epithel Cells (Auto) Urine Bacteria (Auto) 07/16/24 07/16/24 07/16/24 17:10 19:09 19:10 WBC RBC Hgb Hct MCV MCH MCHC RDW Std Deviation RDW Coeff of Jose Alfredo Plt Count MPV Immature Gran % (Auto) Neut % (Auto) Lymph % (Auto) [place] % (Auto) Eos % (Auto) Baso % (Auto) Neut # (Auto) Lymph # (Auto) [place] # (Auto) Eos # (Auto) Baso # (Auto) Immature Gran # (Auto) VBG pH 7.42 H VBG pCO2 52 H VBG pO2 34 VBG HCO3 34 VBG O2 Saturation < 60.0 VBG Base Excess 7.6 Sodium Potassium Chloride Carbon Dioxide Anion Gap BUN Creatinine Est Cr Clr Drug Dosing eGFR BUN/Creatinine Ratio Glucose POC Glucose 97 Calcium Magnesium 1.6 L Total Bilirubin AST ALT Alkaline Phosphatase Total Protein Albumin Globulin Albumin/Globulin Ratio Urine Color Urine Appearance Urine pH Ur Specific [place] Urine Protein Urine Glucose (UA) Urine Ketones Urine Blood Urine Nitrite Urine Bilirubin Urine Urobilinogen Ur Leukocyte Esterase Urine WBC (Auto) Urine RBC (Auto) U Hyaline Cast (Auto) U Epithel Cells (Auto) Urine Bacteria (Auto) 07/16/24 20:50 WBC RBC Hgb Hct MCV MCH MCHC RDW Std Deviation RDW Coeff of Jose Alfredo Plt Count MPV Immature Gran % (Auto) Neut % (Auto) Lymph % (Auto) [place] % (Auto) Eos % (Auto) Baso % (Auto) Neut # (Auto) Lymph # (Auto) [place] # (Auto) Eos # (Auto) Baso # (Auto) Immature Gran # (Auto) VBG pH VBG pCO2 VBG pO2 VBG HCO3 VBG O2 Saturation VBG Base Excess Sodium Potassium Chloride Carbon Dioxide Anion Gap BUN Creatinine Est Cr Clr Drug Dosing eGFR BUN/Creatinine Ratio Glucose POC Glucose 89 Calcium Magnesium Total Bilirubin AST ALT Alkaline Phosphatase Total Protein Albumin Globulin Albumin/Globulin Ratio Urine Color Urine Appearance Urine pH Ur Specific [place] Urine Protein Urine Glucose (UA) Urine Ketones Urine Blood Urine Nitrite Urine Bilirubin Urine Urobilinogen Ur Leukocyte Esterase Urine WBC (Auto) Urine RBC (Auto) U Hyaline Cast (Auto) U Epithel Cells (Auto) Urine Bacteria (Auto) Diagnostic Findings EKG - my reading - mild sinus tach, no ST changes - unchanged from prior EKG PG Care Time/CCT Total # of Minutes Spent Total Time Spent with Patient: Total time spent is greater than 50% in coordination of care (as documented) at patient's floor/unit and/or counseling patient: Coding Level of Care Code 77647 IN/OBS CONSULT LVL 4,60M Diagnoses Malignant neoplasm of colon metastatic to liver C18.9; C78.7 S/P laparoscopic colectomy Z90.49 H/O umbilical hernia repair Z98.890; Z87.19 History of liver biopsy Z98.890 Vapes nicotine containing substance Z72.0 Prediabetes R73.03 Obesity, morbid, BMI 40.0-49.9 E66.01 Hypothyroidism (acquired) E03.9 Asthma J45.909 ADD (attention deficit disorder) F98.8 Bipolar affective disorder F31.9 Generalized anxiety disorder F41.1 Hypertension I10 Dyslipidemia E78.5 Hypothyroidism E03.9 Chronic idiopathic urticaria L50.1
[2024-07-16 19:16] LABS: Base Excess VBG 7.6 mEq/L; HCO3 VBG 34 mmol/L; Oxygen Saturation VBG < 60.0 %; PCO2 VBG 52 mmHg (38-50); PO2 VBG 34 mmHg; pH VBG 7.42 (7.36-7.41)
[2024-07-16] MEDS: LEVALBUTEROL 1.25 MG/3 ML NEB NEB PRN (20:46)
[2024-07-16] MEDS: NICOTINE 14 MG/24 HR PATCH TD SCH (22:11)
[2024-07-16] MEDS: clonazePAM 0.5 MG TAB PO SCH (22:11)
[2024-07-16] MEDS: MAGNESIUM SULFATE / D5W 1 GM/100 ML BAG IV SCH (22:12)
[2024-07-17] MEDS: guaiFENesin 600 MG TABCR PO SCH (08:39)
[2024-07-17 09:44] LABS: Basophils # (auto) 0.04 K/uL (0.00-0.20); Basophils % (auto) 0.4 %; Eosinophils # (auto) 0.21 K/uL (0.00-0.50); Eosinophils % (auto) 2.3 %; Hematocrit (blood only) 31.9 % (37.0-47.0); Hemoglobin 10.4 g/dl (12.0-16.0); Immature Granulocytes # (auto) 0.05 K/uL (0.01-0.20); Immature Granulocytes % (auto) 0.5 %; Lymphocytes # (auto) 1.69 K/uL (1.20-3.40); Lymphocytes % (auto) 18.6 %; Mean Corpuscular Hemoglobin 26.1 pg (25.0-34.0); Mean Corpuscular Hgb Conc 32.6 g/dL (32.0-36.0); Mean Corpuscular Volume 79.9 fL (80.0-100.0); Mean Platelet Volume 10.6 fL (9.4-12.4); Monocytes # (auto) 1.06 K/uL (0.11-0.59); Monocytes % (auto) 11.6 %; Neutrophils # (auto) 6.06 K/uL (1.40-6.50); Neutrophils % (auto) 66.6 %; Platelet Count 407 K/uL (130-400); RDW Coefficient of Variation 15.2 % (11.5-14.5); RDW Standard Deviation 44.1 fL (36.4-46.3); Red Blood Count 3.99 M/uL (4.20-5.40); White Blood Count 9.11 K/ul (4.8-10.8)
[2024-07-17 09:57] LABS: Albumin Globulin Ratio 1.1 (0.9-2); Albumin Level 3.4 gm/dl (3.4-5.0); BUN Creatinine Ratio 5.3 (10-20); Bilirubin,Total 0.6 mg/dl (0.2-1.0); Calcium 8.4 mg/dl (8.6-10.3); Creatinine Clr Calc Pharmacy 138.5 ml/min; Globulin 3.1 gm/dl (2.5-4.0); Magnesium 1.9 mg/dl (1.7-2.4); Potassium 3.4 mmol/L (3.5-5.1); Total Protein 6.5 gm/dl (6.0-8.3)
--- NOTE | 2024-07-17 10:19 | Electrocardiogram Report ---
Test Reason : Blood Pressure : */* mmHG Vent. Rate : 102 BPM Atrial Rate : 102 BPM P-R Int : 174 ms QRS Dur : 92 ms QT Int : 358 ms P-R-T Axes : 57 89 35 degrees QTcB Int : 466 ms Sinus tachycardia Otherwise normal ECG When compared with ECG of 06-Jul-2024 10:53, No significant change was found Confirmed by Karri Chávez ([id number]) on 07/17/2024 10:18:59 AM Referred By: Anant Lucas Confirmed By: Karri Chávez
--- NOTE | 2024-07-17 10:19 | Pharmacy Report ---
Pharmacy Glycemic Short Note 2 - Date of Service July 17, 2024 - Glycemic Short BSG Results (Last 24 hours): 07/16/24 07/16/24 07/17/24 17:10 20:50 07:46 Glucose POC Glucose 97 89 108 H 07/17/24 08:37 Glucose 103 H POC Glucose OUTPATIENT ANTIDIABETIC REGIMEN: * metformin 500mg BID * HbA1c 5.7% (06/04/24) ASSESSMENT: 07/15: * Mona did not receive any insulin in 24 hours * Fasting BSG this AM within goal range, continue to hold basal insulin * No changes to NovoLog at this time, will continue to monitor and trend as diet advances. 07/15 * Mona did not receive any insulin in 24 hours * Fasting BSG this AM within goal range, continue to hold basal insulin * Unable to assess NovoLog at this time as no insulin given, will remove carbohydrate ratio for now and continue to monitor as diet advances. NPO until bowels move per surgery progress notes. Look to restart home metformin once diet tolerated. 07/14: * Mona is a 49 year old female admitted status post colectomy/hernia repair/liver biopsy with a history of prediabetes. * Fasting BSG this AM within goal range, postoperative BSG increased slightly to 143mg/dL, no steroids appear to have been given. * NovoLog initiated at about a weight based stress of 1.5mg/dL. Hold basal insulin at this time. Looser goal range while NPO. PLAN FOR INPATIENT GLYCEMIC CONTROL: * Hold outpatient oral diabetes medications * Basal insulin * hold basal insulin * Bolus insulin * NovoLog per scale ACHS or Q6hrs while NPO * Goal Range: Low 120 mg/dL - High 160 mg/dL * Correction Factor: 35 mg/dL/unit * Nutritional / Prandial insulin per carb ratio of 1 unit per NONE grams CHO consumed
[2024-07-17] MEDS: POTASSIUM CHLORIDE CRTAB 20 MEQ TABCR PO SCH (10:42)
--- NOTE | 2024-07-17 14:00 | Surgery Progress Note ---
Date of Service July 17, 2024 Assessment & Plan (1) S/P laparoscopic colectomy: Plan: Doing okay all things considered. Stay on clears until return of bowel function. Continue to increase activity and ambulation Dr. Rendon on-call for the weekend if any questions or concerns Admission and Anticipated Discharge Date Admission Date: July 14, 2024 Subjective Patient seen. Doing better than yesterday. Abdominal muscle spasms much improved. Tolerating clear liquids. Still no return of bowel function Physical Exam Physical Exam: Alert. No acute distress Abdomen is soft with expected tenderness. Results & Data Vital Signs (Past 12 Hours) Vital Signs Temp Pulse Resp BP Pulse Ox O2 Del Method 07/17/24 09:35 102 H 14 92 Room Air 07/17/24 07:27 36.8 C 105 H 16 115/78 92 Room Air PG Care Time/CCT Total # of Minutes Spent Total Time Spent with Patient: Total time spent is greater than 50% in coordination of care (as documented) at patient's floor/unit and/or counseling patient: Coding Level of Care Code 51764 Post Operative Follow-Up Diagnoses S/P laparoscopic colectomy Z90.49
--- NOTE | 2024-07-17 20:15 | Hospitalist Progress Note ---
Date of Service July 17, 2024 Assessment & Plan (1) Malignant neoplasm of colon metastatic to liver: (2) S/P laparoscopic colectomy: (3) H/O umbilical hernia repair: (4) History of liver biopsy: (5) Vapes nicotine containing substance: (6) Prediabetes: (7) Obesity, morbid, BMI 40.0-49.9: (8) Hypothyroidism (acquired): (9) Asthma: (10) ADD (attention deficit disorder): (11) Bipolar affective disorder: (12) Generalized anxiety disorder: (13) Hypertension: (14) Dyslipidemia: (15) Hypothyroidism: (16) Chronic idiopathic urticaria: Plan 49yo female with recently diagnosed adenocarcinoma of the sigmoid colon with liver & lymph node mets - s/p laparoscopic colectomy of the primary tumor site by Dr Lucas on 07/14/24 - along with morbid obesity, BMI, chronic vaping, prediabetes, fatty liver, hypothyroidism, asthma, ADD, HTN, hyperlipidemia, and bipolar disorder type 2. The primary surgical team consulted the hospitalist team to assist with her complex medication management. During my initial consult on 07/16 she complained of multiple pulmonary symptoms including cough, congestion, wheezing, and mild dyspnea. #wheezing, dyspnea, cough - * likely due to asthma * has not examined in CHF * atelectasis could be contributing * acute PE(s) also possible but unlikely as symptoms improved with Xopenex nebs; however, if any worsening in pulmonary symptoms, low threshold to check CTA chest to r/o PE * cont xopenex nebs q8h prn * incentive spirometer; flutter valve * mucinex BID * checked VBG - mild hypercapnia present, but pH wnl #tachycardia - * patient reports she has tachycardia frequently on chronic basis * EKG with sinus tach, but no other changes * recent TSH (05/2024) wnl * H/H mildly low but acceptable * pain could be contributing * ADD meds can cause tachycardia * low threshold to place on telemetry if any worsening #stage 4 colon ca with mets to liver (biopsy-confirmed) & lymph nodes - * defer diet advancement, pain management, disposition to primary gen surg team * will need heme/onc f/u after discharge at cancer care clinic (Dr Isbell) #bipolar disorder / generalized anxiety / PTSD / ADD - * PDMP confirms she takes clonazepam 1mg BID * since sedation is improved will increase clonazepam dose back to 1mg BID * cont trazodone prn * cont ziprasidone BID * cont prazosin (used for night-nunes, PTSD?) #vaping - * nicoderm patch 14mg/day #sleepiness / mild lethargy - * toxic, due to numerous CREDIT INVESTIGATOR sedating meds * sleepiness much improved today * patient had asked for benadryl to be ordered; deferred due to high-dose zyrtec and availability of atarax prn * patient had asked for dosing of her atarax to be changed (she requested 75mg rather than 25mg); deferred once again due to high-dose zyrtec administration #pre-DM - * last hemoglobin a1c 5.7% in May 2024 * DM diet * novolog SSI * pharmacy consulted for management #hypothyroidism - * TSH wnl in May 2024 * cont synthroid #anemia - * suspect she has underlying Iron deficiency due to chronic rectal bleeding from her colon ca * acute blood loss also contributed * check Fe studies in am; replace as needed * repeat CBC am #DVT proph - * currently lovenox 40mg daily * given her BMI of 44 consider increasing to 40mg BID Admission and Anticipated Discharge Date Admission Date: July 14, 2024 Subjective patient reports her wheezing is much better today s/p multiple xopenex nebs denies any dyspnea still with bloating and mild abd pain but passing flatus no stool yet tolerating clears no N/V no chest pain patient admits to her spirits being down with everything going on still "trying to process everything" Review of Systems Review of Systems: gen - no fevers or chills cv - no orthopnea or PND GI - no worsening of her post-op abd pain Physical Exam Physical Exam: gen - more awake/alert today; NAD; comfortable HENT - MM more moist today neck - no JVD heart - RRR, s1 s2, no murmur lungs - CTA b/l; no rales; no wheezes; better airation today; no increased work of breathing abd - distension improved, BS+ and more active, incision arsen-umbilical area clean with some surrounding ecchymoses; EDWARD drain in place; dressings in place lower abdomen ext - no edema, pulses b/l feet 2+ psych - more awake/alert today; restricted affect Results & Data Results & Data Vital Signs (Past 12 Hours) Vital Signs Temp Pulse Resp BP BP Pulse Ox O2 Del Method 07/17/24 19:44 37.3 C 100 H 14 113/76 92 Room Air 07/17/24 15:14 36.6 C 96 H 16 122/83 94 Room Air 07/17/24 09:35 102 H 14 92 Room Air Laboratory Results Laboratory Results - last 24 hr 07/14/24 07/16/24 07/17/24 Unknown 20:50 07:46 WBC RBC Hgb Hct MCV MCH MCHC RDW Std Deviation RDW Coeff of Jose Alfredo Plt Count MPV Immature Gran % (Auto) Neut % (Auto) Lymph % (Auto) [place] % (Auto) Eos % (Auto) Baso % (Auto) Neut # (Auto) Lymph # (Auto) [place] # (Auto) Eos # (Auto) Baso # (Auto) Immature Gran # (Auto) Sodium Potassium Chloride Carbon Dioxide Anion Gap BUN Creatinine Est Cr Clr Drug Dosing eGFR BUN/Creatinine Ratio Glucose POC Glucose 89 108 H Calcium Magnesium Total Bilirubin AST ALT Alkaline Phosphatase Total Protein Albumin Globulin Albumin/Globulin Ratio Misc Genetic Test Pending 07/17/24 07/17/24 07/17/24 08:37 11:44 16:39 WBC 9.11 RBC 3.99 L Hgb 10.4 L Hct 31.9 L MCV 79.9 L MCH 26.1 MCHC 32.6 RDW Std Deviation 44.1 RDW Coeff of Jose Alfredo 15.2 H Plt Count 407 H MPV 10.6 Immature Gran % (Auto) 0.5 Neut % (Auto) 66.6 Lymph % (Auto) 18.6 [place] % (Auto) 11.6 Eos % (Auto) 2.3 Baso % (Auto) 0.4 Neut # (Auto) 6.06 Lymph # (Auto) 1.69 [place] # (Auto) 1.06 H Eos # (Auto) 0.21 Baso # (Auto) 0.04 Immature Gran # (Auto) 0.05 Sodium 136 Potassium 3.4 L Chloride 96 L Carbon Dioxide 32 Anion Gap 8 BUN 3 L Creatinine 0.57 L Est Cr Clr Drug Dosing 138.5 eGFR 112.03 BUN/Creatinine Ratio 5.3 L Glucose 103 H POC Glucose 111 H 84 Calcium 8.4 L Magnesium 1.9 Total Bilirubin 0.6 AST 13 ALT 12 Alkaline Phosphatase 84 Total Protein 6.5 Albumin 3.4 Globulin 3.1 Albumin/Globulin Ratio 1.1 Misc Genetic Test PG Care Time/CCT Total # of Minutes Spent Total Time Spent with Patient: Total time spent is greater than 50% in coordination of care (as documented) at patient's floor/unit and/or counseling patient: Coding Level of Care Code 95222 SUB INP/OBS CARE 2/35MIN Diagnoses Malignant neoplasm of colon metastatic to liver C18.9; C78.7 S/P laparoscopic colectomy Z90.49 H/O umbilical hernia repair Z98.890; Z87.19 History of liver biopsy Z98.890 Vapes nicotine containing substance Z72.0 Prediabetes R73.03 Obesity, morbid, BMI 40.0-49.9 E66.01 Hypothyroidism (acquired) E03.9 Asthma J45.909 ADD (attention deficit disorder) F98.8 Bipolar affective disorder F31.9 Generalized anxiety disorder F41.1 Hypertension I10 Dyslipidemia E78.5 Hypothyroidism E03.9 Chronic idiopathic urticaria L50.1
--- NOTE | 2024-07-18 05:57 | Surgery Progress Note ---
Date of Service July 18, 2024 Assessment & Plan (1) S/P laparoscopic colectomy: Plan: Patient states she is feeling well, she has been able to tolerate clear liquids without issue thus far. She is starting to pass gas however no BM yet. Will continue clear liquids until return of bowel function. Continue OOB during the day Continue pain control as needed EDWARD drain to remain in place for now Admission and Anticipated Discharge Date Admission Date: July 14, 2024 Supervising Physician Co-Signing Physician Notes She is starting to pass flatus Will advance to full liquids Encourage ambulation and incentive spirometry Lovenox for DVT prophylaxis Will DC her IV pain meds and give p.o. Subjective Patient seen this morning, she states she feels well Tolerating clears without any reported nausea or vomiting Is starting to pass gas however still no BM EDWARD drain remains in place with 60cc serosanguineous output VSS Physical Exam Constitutional: WD/WN, vitals as above Respiratory: normal respiratory effort, lungs clear to auscultation Cardiovascular: RRR, no murmur, no edema Gastrointestinal (Abdomen): Abdomen soft, nondistended, +appropriate TTP over surgical sites. No overlying signs of infection EDWARD drain in place with serosanguineous output Skin: no rashes, warm and dry Results & Data Vital Signs (Past 12 Hours) Vital Signs Temp Pulse Resp BP Pulse Ox O2 Del Method 07/17/24 21:15 95 H 20 122/84 94 Room Air 07/17/24 20:00 Room Air 07/17/24 19:44 37.3 C 100 H 14 113/76 92 Room Air PG Care Time/CCT Total # of Minutes Spent Total Time Spent with Patient: Total time spent is greater than 50% in coordination of care (as documented) at patient's floor/unit and/or counseling patient: Coding [place] [address] Post Operative Follow-Up Patient Type Established Medical Decision Making Straight Forward Diagnoses S/P laparoscopic colectomy Z90.49
[2024-07-18 07:22] LABS: Basophils # (auto) 0.04 K/uL (0.00-0.20); Basophils % (auto) 0.5 %; Eosinophils # (auto) 0.43 K/uL (0.00-0.50); Eosinophils % (auto) 4.9 %; Hematocrit (blood only) 33.2 % (37.0-47.0); Hemoglobin 10.8 g/dl (12.0-16.0); Immature Granulocytes # (auto) 0.05 K/uL (0.01-0.20); Immature Granulocytes % (auto) 0.6 %; Lymphocytes # (auto) 1.61 K/uL (1.20-3.40); Lymphocytes % (auto) 18.5 %; Mean Corpuscular Hemoglobin 26.1 pg (25.0-34.0); Mean Corpuscular Hgb Conc 32.5 g/dL (32.0-36.0); Mean Corpuscular Volume 80.2 fL (80.0-100.0); Mean Platelet Volume 10.1 fL (9.4-12.4); Monocytes # (auto) 0.99 K/uL (0.11-0.59); Monocytes % (auto) 11.4 %; Neutrophils # (auto) 5.58 K/uL (1.40-6.50); Neutrophils % (auto) 64.1 %; Platelet Count 427 K/uL (130-400); RDW Coefficient of Variation 15.3 % (11.5-14.5); RDW Standard Deviation 44.4 fL (36.4-46.3); Red Blood Count 4.14 M/uL (4.20-5.40)
[2024-07-18 07:46] LABS: BUN Creatinine Ratio 7.8 (10-20); Calcium 8.4 mg/dl (8.6-10.3); Creatinine Clr Calc Pharmacy 154.8 ml/min; Potassium 3.4 mmol/L (3.5-5.1)
[2024-07-18 08:05] LABS: Ferritin 72.7 ng/ml (8-388)
[2024-07-18] MEDS: clonazePAM 1 MG TAB PO SCH (08:46)
--- NOTE | 2024-07-18 19:10 | Hospitalist Progress Note ---
Date of Service July 18, 2024 Assessment & Plan (1) Malignant neoplasm of colon metastatic to liver: (2) S/P laparoscopic colectomy: (3) H/O umbilical hernia repair: (4) History of liver biopsy: (5) Vapes nicotine containing substance: (6) Prediabetes: (7) Obesity, morbid, BMI 40.0-49.9: (8) Hypothyroidism (acquired): (9) Asthma: (10) ADD (attention deficit disorder): (11) Bipolar affective disorder: (12) Generalized anxiety disorder: (13) Hypertension: (14) Dyslipidemia: (15) Hypothyroidism: (16) Chronic idiopathic urticaria: Plan 49yo female with recently diagnosed adenocarcinoma of the sigmoid colon with liver & lymph node mets - s/p laparoscopic colectomy of the primary tumor site by Dr Lucas on 07/14/24 - along with morbid obesity, BMI, chronic vaping, prediabetes, fatty liver, hypothyroidism, asthma, ADD, HTN, hyperlipidemia, and bipolar disorder type 2. The primary surgical team consulted the hospitalist team to assist with her complex medication management. During my initial consult on 07/16 she complained of multiple pulmonary symptoms including cough, congestion, wheezing, and mild dyspnea. #wheezing, dyspnea, cough several days ago - * symptoms were likely due to asthma and have improved/resolved with Xopenex * never examined in CHF * atelectasis could have been contributing * acute PE(s) also possible but unlikely as symptoms improved with Xopenex nebs * cont xopenex nebs q8h prn * incentive spirometer; flutter valve * mucinex BID * checked VBG - mild hypercapnia present, but pH wnl #tachycardia - * patient reports she has tachycardia frequently on chronic basis * EKG with sinus tach, but no other changes * recent TSH (05/2024) wnl * H/H mildly low but acceptable * pain could be contributing * ADD meds can cause tachycardia * low threshold to place on telemetry if any worsening #stage 4 colon ca with mets to liver (biopsy-confirmed) & lymph nodes - * s/p Laparoscopic Low Anterior rectosigmoid Colectomy, Liver Biopsy, Umbilical Hernia Repair, partial omentectomy by Dr. Lucas on 07/14/24 * defer diet advancement, pain management, disposition to primary gen surg team; tolerating full liquids * will need heme/onc f/u after discharge at cancer care clinic (Dr Isbell) #bipolar disorder / generalized anxiety / PTSD / ADD - * PDMP confirms she takes clonazepam 1mg BID * cont clonazepam 1mg BID * cont trazodone prn * cont ziprasidone BID * cont prazosin (used for night-nunes) #vaping - * nicoderm patch 14mg/day #sleepiness / mild lethargy - * earlier in admission -- due to toxic effects from numerous REAL ESTATE ASSOCIATE ATTORNEY sedating meds * sleepiness improved * replacing low Fe will help with chronic fatigue #pre-DM - * last hemoglobin a1c 5.7% in May 2024 * DM diet * novolog SSI * pharmacy consulted for management * has not needed any Rx while here #hypothyroidism - * TSH wnl in May 2024 * cont synthroid #anemia - * 2nd to Fe def based on Fe studies today * gen surg ok with IV venofer * IV venofer 300mg ordered for tomorrow AM * plan 3 doses while hospitalized * CBC am for stability #DVT proph - * currently lovenox 40mg daily * given her BMI of 44 consider increasing to 40mg BID Admission and Anticipated Discharge Date Admission Date: July 14, 2024 Subjective patient ambulating in the room during the visit feels better today passing more flatus no BM yet no N/V abd pain much more tolerable denies wheezing/dyspnea/HAAS walking the hallways main complaint is fatigue we discussed getting Fe infusions while here for her Fe def Review of Systems Review of Systems: gen - no fevers or chills cv - no chest pain pulm - no cough - no LUTs Physical Exam Physical Exam: gen - looks better today, ambulating in the room, NAD HENT - MMM neck - no JVD heart - RRR, s1 s2, no murmur lungs - CTA b/l; no rales; no wheezes abd - distension again improved, BS+, incision arsen-umbilical area clean with some surrounding ecchymoses; EDWARD drain in place; dressings in place lower abdomen ext - no edema, pulses b/l feet 2+ psych - more awake/alert today; restricted affect Results & Data Results & Data Vital Signs (Past 12 Hours) Vital Signs Temp Pulse Resp BP BP Pulse Ox O2 Del Method 07/18/24 15:21 36.8 C 100 H 18 120/83 95 Room Air 07/18/24 08:08 37.1 C 97 H 18 115/78 92 Room Air 07/18/24 07:15 Room Air Laboratory Results Laboratory Results - last 48 hr 07/17/24 07/17/24 07/17/24 08:37 11:44 16:39 WBC 9.11 RBC 3.99 L Hgb 10.4 L Hct 31.9 L MCV 79.9 L MCH 26.1 MCHC 32.6 RDW Std Deviation 44.1 RDW Coeff of Jose Alfredo 15.2 H Plt Count 407 H MPV 10.6 Immature Gran % (Auto) 0.5 Neut % (Auto) 66.6 Lymph % (Auto) 18.6 [place] % (Auto) 11.6 Eos % (Auto) 2.3 Baso % (Auto) 0.4 Neut # (Auto) 6.06 Lymph # (Auto) 1.69 [place] # (Auto) 1.06 H Eos # (Auto) 0.21 Baso # (Auto) 0.04 Immature Gran # (Auto) 0.05 Sodium 136 Potassium 3.4 L Chloride 96 L Carbon Dioxide 32 Anion Gap 8 BUN 3 L Creatinine 0.57 L Est Cr Clr Drug Dosing 138.5 eGFR 112.03 BUN/Creatinine Ratio 5.3 L Glucose 103 H POC Glucose 111 H 84 Calcium 8.4 L Magnesium 1.9 Total Bilirubin 0.6 AST 13 ALT 12 Alkaline Phosphatase 84 Total Protein 6.5 Albumin 3.4 Globulin 3.1 Albumin/Globulin Ratio 1.1 07/17/24 07/18/24 07/18/24 20:50 06:52 07:38 WBC 8.70 RBC 4.14 L Hgb 10.8 L Hct 33.2 L MCV 80.2 MCH 26.1 MCHC 32.5 RDW Std Deviation 44.4 RDW Coeff of Jose Alfredo 15.3 H Plt Count 427 H MPV 10.1 Immature Gran % (Auto) 0.6 Neut % (Auto) 64.1 Lymph % (Auto) 18.5 [place] % (Auto) 11.4 Eos % (Auto) 4.9 Baso % (Auto) 0.5 Neut # (Auto) 5.58 Lymph # (Auto) 1.61 [place] # (Auto) 0.99 H Eos # (Auto) 0.43 Baso # (Auto) 0.04 Immature Gran # (Auto) 0.05 Sodium 134 L Potassium 3.4 L Chloride 97 L Carbon Dioxide 29 Anion Gap 8 BUN 4 L Creatinine 0.51 L Est Cr Clr Drug Dosing 154.8 eGFR 115.07 BUN/Creatinine Ratio 7.8 L Glucose 92 POC Glucose 103 H 83 Calcium 8.4 L Iron 16 L TIBC 286 Transferrin 204 Transferrin % Sat 6 L Ferritin 72.7 PG Care Time/CCT Total # of Minutes Spent Total Time Spent with Patient: Total time spent is greater than 50% in coordination of care (as documented) at patient's floor/unit and/or counseling patient: Coding Level of Care Code 04422 SUB INP/OBS CARE 04/18MIN Diagnoses Malignant neoplasm of colon metastatic to liver C18.9; C78.7 S/P laparoscopic colectomy Z90.49 H/O umbilical hernia repair Z98.890; Z87.19 History of liver biopsy Z98.890 Vapes nicotine containing substance Z72.0 Prediabetes R73.03 Obesity, morbid, BMI 40.0-49.9 E66.01 Hypothyroidism (acquired) E03.9 Asthma J45.909 ADD (attention deficit disorder) F98.8 Bipolar affective disorder F31.9 Generalized anxiety disorder F41.1 Hypertension I10 Dyslipidemia E78.5 Hypothyroidism E03.9 Chronic idiopathic urticaria L50.1
--- NOTE | 2024-07-19 06:37 | Surgery Progress Note ---
Date of Service July 19, 2024 Assessment & Plan (1) S/P laparoscopic colectomy: Plan: Patient doing well, will continue full liquids for this morning and can consider advancing to low fiber maybe later today vs tomorrow. Continue OOB during the day Continue oral pain medication as needed EDWARD drain to remain in place for now Continue DVT ppx Admission and Anticipated Discharge Date Admission Date: July 14, 2024 Supervising Physician Co-Signing Physician Notes Advance to low fiber diet If she tolerates that she can be likely discharged tomorrow Subjective Patient doing well this morning, was up ambulating to bathroom Pain well controlled Tolerating full-liquids without any reported issues. Patient is passing gas however still no BM Physical Exam Constitutional: WD/WN, vitals as above Respiratory: normal respiratory effort, lungs clear to auscultation Cardiovascular: RRR, no murmur, no edema Gastrointestinal (Abdomen): Abdomen soft, nondistended, appropriate TTP over surgical sites without rebound or guarding. EDWARD drain in place with 60mL serosang output Skin: no rashes, warm and dry Results & Data Vital Signs (Past 12 Hours) Vital Signs Temp Pulse Resp BP Pulse Ox O2 Del Method 07/18/24 19:25 Room Air 07/18/24 19:23 36.8 C 100 H 16 130/67 93 Room Air PG Care Time/CCT Total # of Minutes Spent Total Time Spent with Patient: Total time spent is greater than 50% in coordination of care (as documented) at patient's floor/unit and/or counseling patient: C[place] [address] Post Operative Follow-Up Patient Type Established Medical Decision Making Straight Forward Diagnoses S/P laparoscopic colectomy Z90.49
[2024-07-19 07:42] LABS: Basophils # (auto) 0.04 K/uL (0.00-0.20); Basophils % (auto) 0.4 %; Eosinophils # (auto) 0.58 K/uL (0.00-0.50); Eosinophils % (auto) 5.9 %; Hematocrit (blood only) 33.6 % (37.0-47.0); Hemoglobin 10.8 g/dl (12.0-16.0); Immature Granulocytes # (auto) 0.05 K/uL (0.01-0.20); Immature Granulocytes % (auto) 0.5 %; Lymphocytes # (auto) 1.71 K/uL (1.20-3.40); Lymphocytes % (auto) 17.5 %; Mean Corpuscular Hemoglobin 25.8 pg (25.0-34.0); Mean Corpuscular Hgb Conc 32.1 g/dL (32.0-36.0); Mean Corpuscular Volume 80.2 fL (80.0-100.0); Mean Platelet Volume 10.3 fL (9.4-12.4); Monocytes # (auto) 1.14 K/uL (0.11-0.59); Monocytes % (auto) 11.7 %; Neutrophils # (auto) 6.23 K/uL (1.40-6.50); Platelet Count 468 K/uL (130-400); RDW Coefficient of Variation 15.4 % (11.5-14.5); RDW Standard Deviation 44.5 fL (36.4-46.3); Red Blood Count 4.19 M/uL (4.20-5.40); White Blood Count 9.75 K/ul (4.8-10.8)
[2024-07-19] MEDS: IRON SUCROSE 300 MG in SODIUM CHLORIDE 0.9% 250 ML IV ONE (08:45)
--- NOTE | 2024-07-19 08:47 | Pharmacy Report ---
Pharmacy Glycemic Sign Off Nt - Date of Service July 19, 2024 - Assessment & Plan ASSESSMENT: * Pharmacy was consulted for glycemic control and to write orders per [facility] inpatient glycemic control protocol. * Major changes made by pharmacy to antidiabetic regimen include: * placing patient on NovoLog ACHS, CF only * Patient has been receiving/requiring 0 units of insulin per day for adequate glycemic control * Do not anticipate further changes in patient status that would quickly deteriorate glycemic control PLAN FOR INPATIENT GLYCEMIC CONTROL: * Discontinue NovoLog, not needed * Resume Metformin when tolerating diet. * Pharmacy is signing off of glycemic consult and will no longer be making adjustments to inpatient regimen. Please feel free to re-consult if needed. Thank you.
--- NOTE | 2024-07-19 17:58 | Hospitalist Progress Note ---
Date of Service July 19, 2024 Assessment & Plan (1) Malignant neoplasm of colon metastatic to liver: (2) S/P laparoscopic colectomy: (3) H/O umbilical hernia repair: (4) History of liver biopsy: (5) Vapes nicotine containing substance: (6) Prediabetes: (7) Obesity, morbid, BMI 40.0-49.9: (8) Hypothyroidism (acquired): (9) Asthma: (10) ADD (attention deficit disorder): (11) Bipolar affective disorder: (12) Generalized anxiety disorder: (13) Hypertension: (14) Dyslipidemia: (15) Hypothyroidism: (16) Chronic idiopathic urticaria: Plan 49yo female with recently diagnosed adenocarcinoma of the sigmoid colon with liver & lymph node mets - s/p laparoscopic colectomy of the primary tumor site by Dr Lucas on 07/14/24 - along with morbid obesity, BMI, chronic vaping, prediabetes, fatty liver, hypothyroidism, asthma, ADD, HTN, hyperlipidemia, and bipolar disorder type 2. The primary surgical team consulted the hospitalist team to assist with her complex medication management. During my initial consult on 07/16 she complained of multiple pulmonary symptoms all of which resolved with bronchodilators. #wheezing, dyspnea, cough several days ago - * resolved, have not recurred; stable lung exam; o2 sats wnl * symptoms were due to asthma and resolved with Xopenex * never examined in CHF * acute PE(s) unlikely as symptoms resolved with Xopenex nebs * cont xopenex nebs q8h prn * incentive spirometer; flutter valve * mucinex BID #tachycardia - * stable; BPs also wnl * patient reports she has tachycardia frequently on chronic basis * EKG with sinus tach, but no other changes * recent TSH (05/2024) wnl * H/H mildly low but acceptable * ADD meds may be contributing to her chronic tachycardia #stage 4 colon ca with mets to liver (biopsy-confirmed) & lymph nodes - * s/p Laparoscopic Low Anterior rectosigmoid Colectomy, Liver Biopsy, Umbilical Hernia Repair, partial omentectomy by Dr. Lucas on 07/14/24 * diet advanced to low fiber by gen surg today; tolerated her first meal * passing copious flatus; no stool but likely to have such next 1-2 days * will need heme/onc f/u after discharge at cancer care clinic (Dr Isbell) #bipolar disorder / generalized anxiety / PTSD / ADD - * PDMP confirms she takes clonazepam 1mg BID * cont clonazepam 1mg BID * cont trazodone prn * cont ziprasidone BID * cont prazosin (used for night-nunes) #vaping - * nicoderm patch 14mg/day #sleepiness / mild lethargy - * earlier in admission -- due to toxic effects from numerous PROGRESS MAN sedating meds -- resolved #pre-DM - * last hemoglobin a1c 5.7% in May 2024 * DM diet * novolog SSI * pharmacy consulted for management but they have signed off since glycemic control has been excellent * has not needed any Rx while here #hypothyroidism - * TSH wnl in May 2024 * cont synthroid #anemia - * 2nd to Fe def based on Fe studies * gen surg ok with IV venofer * IV venofer 300mg x 1 today, with 2nd dose of 300mg on 07/20 * plan daily doses until she is discharged * CBCs remain stable #DVT proph - * given her BMI of 44 should be on lovenox 40mg BID - adjusted today Admission and Anticipated Discharge Date Admission Date: July 14, 2024 Subjective no events overnight +flatus (large amount) but still no stool tolerating liquid diet without nausea/emesis she was advanced to low fiber diet at lunch - tolerated this as well received her IV iron this am w/o any issues Review of Systems Review of Systems: cv - no chest pain pulm - no dyspnea, no cough, no dyspnea on exertion neuro - no dizziness or lightheadedness GI - minimal abd pain Physical Exam Physical Exam: gen - best she has looked since I met her earlier this week; NAD; pleasant HENT - MMM neck - no JVD heart - RRR, s1 s2, no murmur lungs - CTA b/l; no rales; no wheezes abd - distension MUCH improved, BS+, incision arsen-umbilical area clean with some surrounding ecchymoses; EDWARD drain in place - serosanguinous fluid only; ruthy drain LLQ; sharon intact LLQ; dressings in place lower abdomen ext - no edema, pulses b/l feet 2+ psych - a/o x3 Results & Data Results & Data Vital Signs (Past 12 Hours) Vital Signs Temp Pulse Resp BP BP Pulse Ox O2 Del Method 07/19/24 15:39 37.4 C 92 H 20 124/87 100 Room Air 07/19/24 07:30 Room Air 07/19/24 07:22 36.7 C 106 H 16 111/79 93 Room Air Laboratory Results Laboratory Results - last 24 hr 07/18/24 07/19/24 07/19/24 20:11 07:04 07:43 WBC 9.75 RBC 4.19 L Hgb 10.8 L Hct 33.6 L MCV 80.2 MCH 25.8 MCHC 32.1 RDW Std Deviation 44.5 RDW Coeff of Jose Alfredo 15.4 H Plt Count 468 H MPV 10.3 Immature Gran % (Auto) 0.5 Neut % (Auto) 64.0 Lymph % (Auto) 17.5 [place] % (Auto) 11.7 Eos % (Auto) 5.9 Baso % (Auto) 0.4 Neut # (Auto) 6.23 Lymph # (Auto) 1.71 [place] # (Auto) 1.14 H Eos # (Auto) 0.58 H Baso # (Auto) 0.04 Immature Gran # (Auto) 0.05 POC Glucose 82 96 PG Care Time/CCT Total # of Minutes Spent Total Time Spent with Patient: Total time spent is greater than 50% in coordination of care (as documented) at patient's floor/unit and/or counseling patient: Coding Level of Care Code 58939 SUB INP/OBS CARE 2/35MIN Diagnoses Malignant neoplasm of colon metastatic to liver C18.9; C78.7 S/P laparoscopic colectomy Z90.49 H/O umbilical hernia repair Z98.890; Z87.19 History of liver biopsy Z98.890 Vapes nicotine containing substance Z72.0 Prediabetes R73.03 Obesity, morbid, BMI 40.0-49.9 E66.01 Hypothyroidism (acquired) E03.9 Asthma J45.909 ADD (attention deficit disorder) F98.8 Bipolar affective disorder F31.9 Generalized anxiety disorder F41.1 Hypertension I10 Dyslipidemia E78.5 Hypothyroidism E03.9 Chronic idiopathic urticaria L50.1
[2024-07-19] MEDS: ENOXAPARIN INJ 40 MG/0.4 ML SYR SQ SCH (21:23)
[2024-07-20 06:07] LABS: Basophils # (auto) 0.05 K/uL (0.00-0.20); Basophils % (auto) 0.5 %; Eosinophils % (auto) 4.3 %; Hematocrit (blood only) 37.2 % (37.0-47.0); Hemoglobin 12.1 g/dl (12.0-16.0); Immature Granulocytes # (auto) 0.07 K/uL (0.01-0.20); Immature Granulocytes % (auto) 0.8 %; Lymphocytes # (auto) 1.82 K/uL (1.20-3.40); Lymphocytes % (auto) 19.6 %; Mean Corpuscular Hemoglobin 25.9 pg (25.0-34.0); Mean Corpuscular Hgb Conc 32.5 g/dL (32.0-36.0); Mean Corpuscular Volume 79.5 fL (80.0-100.0); Monocytes # (auto) 1.08 K/uL (0.11-0.59); Monocytes % (auto) 11.6 %; Neutrophils # (auto) 5.87 K/uL (1.40-6.50); Neutrophils % (auto) 63.2 %; Platelet Count 518 K/uL (130-400); RDW Coefficient of Variation 15.2 % (11.5-14.5); RDW Standard Deviation 43.8 fL (36.4-46.3); Red Blood Count 4.68 M/uL (4.20-5.40); White Blood Count 9.29 K/ul (4.8-10.8)
[2024-07-20] MEDS: IRON SUCROSE 300 MG in SODIUM CHLORIDE 0.9% 250 ML IV ONE (08:22)
--- NOTE | 2024-07-20 09:40 | Surgery Progress Note ---
Date of Service July 20, 2024 Assessment & Plan (1) S/P laparoscopic colectomy: Plan: s/p sigmoid colectomy, umbilical hernia repair, liver biopsy wbc 9. vitals stable incisions c/d/i. farzaneh drain serosang, ruthy in place in LLQ tolerating low fiber diet awaiting BM prior to dispo. requesting a stool softener will add senna can d/c when has a BM as above. doing well. awaiting bowel fx. Admission and Anticipated Discharge Date Admission Date: July 14, 2024 Subjective Patient feeling okay. Tolerating diet no nausea/vomiting. passing gas but no BM yet Physical Exam Physical Exam: awake/alert, no distress Gastrointestinal (Abdomen): Inspection/Auscultation: + abdominal surgical incision (c/d/i, LLQ incision w/ sharon no infection, remained with dermabond) FARZANEH drain serosang PG Care Time/CCT Total # of Minutes Spent Total Time Spent with Patient: Total time spent is greater than 50% in coordination of care (as documented) at patient's floor/unit and/or counseling patient: Coding Level of Care Code 24610 Post Operative Follow-Up Diagnoses S/P laparoscopic colectomy Z90.49
[2024-07-20] MEDS: SENNA 8.6 MG TAB PO SCH (09:58)
--- NOTE | 2024-07-20 12:07 | Hospitalist Progress Note ---
Date of Service July 20, 2024 Assessment & Plan (1) Malignant neoplasm of colon metastatic to liver: (2) S/P laparoscopic colectomy: (3) H/O umbilical hernia repair: (4) History of liver biopsy: (5) Vapes nicotine containing substance: (6) Prediabetes: (7) Obesity, morbid, BMI 40.0-49.9: (8) Hypothyroidism (acquired): (9) Asthma: (10) ADD (attention deficit disorder): (11) Bipolar affective disorder: (12) Generalized anxiety disorder: (13) Hypertension: (14) Dyslipidemia: (15) Hypothyroidism: (16) Chronic idiopathic urticaria: Plan 49yo female with recently diagnosed adenocarcinoma of the sigmoid colon with liver & lymph node mets - s/p laparoscopic colectomy of the primary tumor site by Dr Lucas on 07/14/24 - along with morbid obesity, BMI, chronic vaping, prediabetes, fatty liver, hypothyroidism, asthma, ADD, HTN, hyperlipidemia, and bipolar disorder type 2. The primary surgical team consulted the hospitalist team to assist with her complex medication management. During my initial consult on 07/16 she complained of multiple pulmonary symptoms all of which resolved with bronchodilators. #wheezing, dyspnea, cough several days ago - * resolved, have not recurred; stable lung exam since late last week; o2 sats wnl * symptoms were due to asthma and resolved with Xopenex * never examined in CHF * acute PE(s) unlikely as symptoms resolved with Xopenex nebs * cont xopenex nebs q8h prn * incentive spirometer; flutter valve * mucinex BID #tachycardia - * stable but persistent * patient reports she has tachycardia frequently on chronic basis * EKG with sinus tach, but no other changes * recent TSH (05/2024) wnl * H/H mildly low but stable * ADD meds may be contributing to her chronic tachycardia * to be complete will obtain echo to ensure normal LV function, etc. #stage 4 colon ca with mets to liver (biopsy-confirmed) & lymph nodes - * s/p Laparoscopic Low Anterior rectosigmoid Colectomy, Liver Biopsy, Umbilical Hernia Repair, partial omentectomy by Dr. Lucas on 07/14/24 * tolerating low fiber dieet * passing copious flatus; no stool but likely to have such soon * has scheduled f/u with Dr Isbell, heme/onc, [facility] on July 24 #bipolar disorder / generalized anxiety / PTSD / ADD - * PDMP confirms she takes clonazepam 1mg BID * cont clonazepam 1mg BID * cont trazodone prn * cont ziprasidone BID * cont prazosin (used for night-nunes) #vaping - * nicoderm patch 14mg/day #sleepiness / mild lethargy - * earlier in admission -- due to toxic effects from numerous JEWEL[employer] ENG[employer] sedating meds -- resolved #pre-DM - * last hemoglobin a1c 5.7% in May 2024 * DM diet * novolog SSI * pharmacy consulted for management but they have signed off since glycemic control has been excellent * has not needed any Rx while here #hypothyroidism - * TSH wnl in May 2024 * cont synthroid #anemia - * 2nd to Fe def based on Fe studies * gen surg ok with IV venofer * IV venofer 300mg x 1 on 07/19 * 2nd dose of 300mg on 07/20 * if she is here thru 07/21 will give 3rd dose at that time * CBCs remain stable #DVT proph - * given her BMI of 44 cont lovenox 40mg BID Admission and Anticipated Discharge Date Admission Date: July 14, 2024 Subjective patient feeling good tolerating solids no nausea/emesis minimal abd pain passing copious flatus; still no BM tolerated IV iron again this am anxious to d/c home she reports she may not have transportation to get to her appts at the cancer center (17yo son does not drive, no local family to help, etc) Review of Systems Review of Systems: gen - no fevers or chills cv - no chest pain pulm - no dyspnea GI - no N/V Physical Exam Physical Exam: gen - looks well; NAD; pleasant HENT - MMM neck - no JVD heart - tachy, RR, s1 s2, no murmur lungs - CTA b/l; no rales; no wheezes abd - distension only mild, BS+, incision arsen-umbilical area clean with some surrounding ecchymoses; EDWARD drain in place - serosanguinous fluid only; sharon intact LLQ; dressings in place lower abdomen ext - no edema, pulses b/l feet 2+ psych - a/o x3 Results & Data Results & Data Vital Signs (Past 12 Hours) Vital Signs Temp Pulse Resp BP Pulse Ox O2 Del Method 07/20/24 10:15 37.3 C 92 H 18 102/71 94 Room Air Laboratory Results Laboratory Results - last 24 hr 07/20/24 05:29 WBC 9.29 RBC 4.68 Hgb 12.1 Hct 37.2 MCV 79.5 L MCH 25.9 MCHC 32.5 RDW Std Deviation 43.8 RDW Coeff of Jose Alfredo 15.2 H Plt Count 518 H MPV 10.0 Immature Gran % (Auto) 0.8 Neut % (Auto) 63.2 Lymph % (Auto) 19.6 Buchanan % (Auto) 11.6 Eos % (Auto) 4.3 Baso % (Auto) 0.5 Neut # (Auto) 5.87 Lymph # (Auto) 1.82 Buchanan # (Auto) 1.08 H Eos # (Auto) 0.40 Baso # (Auto) 0.05 Immature Gran # (Auto) 0.07 PG Care Time/CCT Total # of Minutes Spent Total Time Spent with Patient: Total time spent is greater than 50% in coordination of care (as documented) at patient's floor/unit and/or counseling patient: Coding Level of Care Code 29390 SUB INP/OBS CARE 2/35MIN Diagnoses Malignant neoplasm of colon metastatic to liver C18.9; C78.7 S/P laparoscopic colectomy Z90.49 H/O umbilical hernia repair Z98.890; Z87.19 History of liver biopsy Z98.890 Vapes nicotine containing substance Z72.0 Prediabetes R73.03 Obesity, morbid, BMI 40.0-49.9 E66.01 Hypothyroidism (acquired) E03.9 Asthma J45.909 ADD (attention deficit disorder) F98.8 Bipolar affective disorder F31.9 Generalized anxiety disorder F41.1 Hypertension I10 Dyslipidemia E78.5 Hypothyroidism E03.9 Chronic idiopathic urticaria L50.1
--- NOTE | 2024-07-20 14:35 | XCELERA ---
[id number]
[2024-07-20 19:39] VITALS: RESP 16
--- NOTE | 2024-07-21 07:07 | Hospitalist Progress Note ---
Date of Service July 21, 2024 Assessment & Plan (1) Malignant neoplasm of colon metastatic to liver: (2) S/P laparoscopic colectomy: (3) H/O umbilical hernia repair: (4) History of liver biopsy: (5) Vapes nicotine containing substance: (6) Prediabetes: (7) Obesity, morbid, BMI 40.0-49.9: (8) Hypothyroidism (acquired): (9) Asthma: (10) ADD (attention deficit disorder): (11) Bipolar affective disorder: (12) Generalized anxiety disorder: (13) Hypertension: (14) Dyslipidemia: (15) Hypothyroidism: (16) Chronic idiopathic urticaria: Plan 49yo female with recently diagnosed adenocarcinoma of the sigmoid colon with liver & lymph node mets - s/p laparoscopic colectomy of the primary tumor site by Dr Lucas on 07/14/24 - along with morbid obesity, BMI, chronic vaping, prediabetes, fatty liver, hypothyroidism, asthma, ADD, HTN, hyperlipidemia, and bipolar disorder type 2. The primary surgical team consulted the hospitalist team to assist with her complex medication management. During my initial consult on 07/16 she complained of multiple pulmonary symptoms all of which resolved with bronchodilators. #wheezing, dyspnea, cough several days ago - * resolved, have not recurred; stable lung exam since late last week; o2 sats wnl * symptoms were due to asthma and resolved with Xopenex * never examined in CHF * acute PE(s) unlikely as symptoms resolved with Xopenex nebs * cont xopenex nebs q8h prn * incentive spirometer; flutter valve * mucinex BID * CXR w/ atelectasis but no pneumonia, remains on room air --> discussed and encouraged continued use of incentive spirometer at discharge. 94% on RA #tachycardia - * stable but persistent * patient reports she has tachycardia frequently on chronic basis * EKG with sinus tach, but no other changes * recent TSH (05/2024) wnl , repeat TSH/t4 wnl, t3 pending * Hgb improved w/ Venofer IV below * Suspect also ADD meds may be contributing to her chronic tachycardia but also anxiety/stress from being away from her son and low income housing appointment to get to * ECHO added for completeness, normal LV function/EF, outpatient f/u. Consider anxiolytic/decrease to ADD medications in follow up #stage 4 colon ca with mets to liver (biopsy-confirmed) & lymph nodes - * s/p Laparoscopic Low Anterior rectosigmoid Colectomy, Liver Biopsy, Umbilical Hernia Repair, partial omentectomy by Dr. Lucas on 07/14/24 * tolerating low fiber dieet * passing copious flatus; no stool but likely to have such soon and ambulation encouraged, senna BID added 07/20 by surgery/primary * has scheduled f/u with Dr Isbell, nayana/onc, at [facility] on July 24 #bipolar disorder / generalized anxiety / PTSD / ADD - * PDMP confirms she takes clonazepam 1mg BID * cont clonazepam 1mg BID * cont trazodone prn * cont ziprasidone BID * cont prazosin (used for night-nunes) #vaping - * nicoderm patch 14mg/day , encouraged cessation. also could be contributing to tachy above as without for a week. 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 meds -- resolved #pre-DM - * last hemoglobin a1c 5.7% in May 2024 * DM diet * novolog SSI * pharmacy consulted for management but they have signed off since glycemic control has been excellent * has not needed any Rx while here #hypothyroidism - * TSH wnl in May 2024 * cont synthroid #anemia - * 2nd to Fe def based on Fe studies * gen surg ok with IV venofer * IV venofer 300mg x 1 on 07/19, 2nd dose 300mg on 07/20 and 300mg ordered for today (07/21) to complete 3 doses while inpatient * CBCs remain stable and f/u oncology above #DVT proph - * given her BMI of 44 cont lovenox 40mg BID while inpatient Dispo: continued inpatient stay, hopeful dc once ok'd by surgery (with or without bowel movement, KUB w/o obstruction/ileus and +BS througout and passing flatus) If remains inpatient/no bowel movement, will follow along in AM. Please call with any questions/concerns Admission and Anticipated Discharge Date Admission Date: July 14, 2024 Supervising Physician Co-Signing Physician Notes The patient was not seen by me. The chart was reviewed. Case discussed with JANIA Zacarias. Agree with assessment and plan Subjective Eval this morning, sitting up in bed. Pain controlled w/ ordered meds. Tolerating diet Passing gas but no BM, she is really wanting to go home today and reports has left her child for the past 7 days and that she has a low income housing appt she has to get to. Encouraged increased ambulation/pause Venofer IV for now, hopeful dc this afternoon if moving bowels per surgery. No CP/SOB reported. Discussed CXR and continued use of incentive spirometer at discharge and monitoring for any pneumonia. Discussed will message primary service for ongoing discussion if not having BM.. Questions/concerns addressed at this time. Physical Exam 2 Physical Exam: General: 49yo female sitting up in bed, anxious to get home, NAD, pain controlled HEENT; Head atraumatic, normocephalic, mmm, trachea midline Resp: even/unlabored, slight crackles in bases (improved with deep breath), no wheezing/rales, on room air 94% CV: regular, tachy to 100s, no significant m/r/g, no pitting edema GI: +BS throughout, slight distension, appropriately tender around incisions, EDWARD w/ serosanginous drainage (much decreased), slight erythema to dressing lower abdomen (surgery to send on PO Augmentin for coverage) : no torres MSK/Neuro: nonfocal, not confused, moves all extremities Psych - a/o x3 , anxious about need for discharge to take care of home situation Results & Data Results & Data Vital Signs (Past 12 Hours) Vital Signs Temp Pulse Resp BP Pulse Ox O2 Del Method 07/20/24 19:37 37.1 C 114 H 16 136/88 94 Room Air Laboratory Results 07/21/24 11:36 07/21/24 11:36 Mag 1.9 TSH 1.387 F4 1.11 T 3 pending Diagnostic Findings KUB X-Ray 07/21/24 08:31 KUB HISTORY: Acute abdominal pain s/p bowel resection, No Bm yet , eval SBO vs ileus COMPARISON: CT 05/27/2024 FINDINGS: A surgical sponge projects over the pelvis. Surgical drainage catheter with skin sharon. Nonobstructive bowel gas pattern. Mild gaseous distention of the transverse colon. Nonobstructive bowel gas pattern. Moderate fecal retention of the right hemicolon. No renal calculi. No ureteral calculi. No pneumoperitoneum or pneumatosis. No fracture. IMPRESSION: 1. Postoperative changes as above. 2. Nonobstructive bowel gas pattern. ACT 112: Negative or not required by law. The above report was generated using voice recognition software. It may contain grammatical, syntax or spelling errors. Electronically signed by: Joaquin Villalobos M.D. 07/21/2024 10:13 AM Chest X-Ray 07/21/24 09:08 XR chest 1V not portable CLINICAL HISTORY: temp, eval atelectasis COMPARISON STUDY: Chest CT July 03, 2024. FINDINGS: Lung volumes are mildly diminished. There is no pneumothorax or pleural effusion. Linear bibasilar densities favor mild atelectasis. No consolidation is identified to suggest pneumonia. Pulmonary vascularity is normal. Cardiomediastinal silhouette is unremarkable. IMPRESSION: Mildly diminished lung volumes with linear bibasilar densities suggestive of mild atelectasis. No consolidation to suggest pneumonia. ACT 112: Negative or not required by law. Electronically signed by: Torsten Marie M.D. 07/21/2024 9:38 AM PG Care Time/CCT Total # of Minutes Spent Total Time Spent with Patient: Total time spent is greater than 50% in coordination of care (as documented) at patient's floor/unit and/or counseling patient: Coding Level of Care Code 96801 SUB INP/OBS CARE 3/50MIN Diagnoses Malignant neoplasm of colon metastatic to liver C18.9; C78.7 S/P laparoscopic colectomy Z90.49 H/O umbilical hernia repair Z98.890; Z87.19 History of liver biopsy Z98.890 Vapes nicotine containing substance Z72.0 Prediabetes R73.03 Obesity, morbid, BMI 40.0-49.9 E66.01 Hypothyroidism (acquired) E03.9 Asthma J45.909 ADD (attention deficit disorder) F98.8 Bipolar affective disorder F31.9 Generalized anxiety disorder F41.1 Hypertension I10 Dyslipidemia E78.5 Hypothyroidism E03.9 Chronic idiopathic urticaria L50.1
[2024-07-21 07:51] VITALS: TEMP 99.1
--- NOTE | 2024-07-21 07:52 | Surgery Progress Note ---
Date of Service July 21, 2024 Assessment & Plan (1) S/P laparoscopic colectomy: Plan: tolerating low fiber diet +flatus , Waiting return of bowel function encouraged ambulation ruthy and EDWARD to be removed prior to d/c , marii changed hopeful later today pt has BM will follow Admission and Anticipated Discharge Date Admission Date: July 14, 2024 Subjective pt w/o complaints denies bm, n/v, +flatus Review of Systems Constitutional: no fever and no chills Respiratory: no dyspnea Cardiovascular: no chest pain Gastrointestinal: + abdominal pain; no nausea and no vomit ing Physical Exam Constitutional: comfortable; no acute distress Respiratory: normal respiratory effort; no respiratory distress Gastrointestinal (Abdomen): Inspection/Auscultation: + abdominal surgical incision and + abdominal surgical drain present; abdomen not distended Percussion/Palpation: abdomen soft PG Care Time/CCT Total # of Minutes Spent Total Time Spent with Patient: Total time spent is greater than 50% in coordination of care (as documented) at patient's floor/unit and/or counseling patient: Coding Level of Care Code 57901 Post Operative Follow-Up Diagnoses S/P laparoscopic colectomy Z90.49
[2024-07-21] MEDS: IRON SUCROSE 300 MG in SODIUM CHLORIDE 0.9% 250 ML IV ONE (08:20)
[2024-07-21 09:12] VITALS: BP 112/76; O2SAT 94
--- NOTE | 2024-07-21 09:40 | XRay Report ---
XR chest 1V not portable CLINICAL HISTORY: temp, eval atelectasis COMPARISON STUDY: Chest CT July 03, 2024. FINDINGS: Lung volumes are mildly diminished. There is no pneumothorax or pleural effusion. Linear bi basilar densities favor mild atelectasis. No consolidation is identified to suggest pneumonia. Pulmon shay vascularity is normal. Cardiomediastinal silhouette is unremarkable. IMPRESSION: Mildly diminished lung volumes with linear bibasilar densities suggestive of mild atelec tasis. No consolidation to suggest pneumonia. ACT 112: Negative or not required by law. Electronically signed by: Torsten Marie M.D. 07/21/2024 9:38 AM
[2024-07-21] MEDS: ACETAMINOPHEN 325 MG TAB PO ONE (09:45)
--- NOTE | 2024-07-21 10:15 | XRay Report ---
KUB HISTORY: Acute abdominal pain s/p bowel resection, No Bm yet , eval SBO vs ileus COMPARISON: CT 05/27/2024 FINDINGS: A surgical sponge projects over the pelvis. Surgical drainage catheter with skin sharon. N onobstructive bowel gas pattern. Mild gaseous distention of the transverse colon. Nonobstructive jay l gas pattern. Moderate fecal retention of the right hemicolon. No renal calculi. No ureteral calcul i. No pneumoperitoneum or pneumatosis. No fracture. IMPRESSION: 1. Postoperative changes as above. 2. Nonobstructive bowel gas pattern. ACT 112: Negative or not required by law. The above report was generated using voice recognition software. It may contain grammatical, syntax o r spelling errors. Electronically signed by: Joaquin Villalobos M.D. 07/21/2024 10:13 AM
[2024-07-21 11:26] VITALS: PULSE 100
[2024-07-21 12:02] LABS: Hematocrit (blood only) 36.4 % (37.0-47.0); Mean Corpuscular Hemoglobin 25.6 pg (25.0-34.0); Mean Corpuscular Volume 77.8 fL (80.0-100.0); Mean Platelet Volume 9.9 fL (9.4-12.4); Platelet Count 522 K/uL (130-400); RDW Coefficient of Variation 15.3 % (11.5-14.5); RDW Standard Deviation 42.3 fL (36.4-46.3); Red Blood Count 4.68 M/uL (4.20-5.40); White Blood Count 13.47 K/ul (4.8-10.8)
[2024-07-21 12:31] LABS: Calcium 8.9 mg/dl (8.6-10.3); Magnesium 1.9 mg/dl (1.7-2.4); Potassium 3.7 mmol/L (3.5-5.1)
[2024-07-21 12:37] LABS: BUN Creatinine Ratio 11.9 (10-20); Creatinine Clr Calc Pharmacy 133.8 ml/min
[2024-07-21 12:43] LABS: Thyroid Stimulating Hormone 1.387 uIu/ml (0.300-4.500)
[2024-07-21 12:45] LABS: T4 Free Thyroxine 1.11 ng/dl (0.61-1.60)
== END 2024-07-21 14:18 | disposition home or self-care (01) | DRG 330 ==
LOC: ASU 06:42 → 3E 12:17
DX: F43.10 Post-traumatic stress disorder, unspecified; E66.01 Morbid (severe) obesity due to excess calories; F98.8 Other specified behavioral and emotional disorders with onset usually occurring in childhood and adolescence; K42.0 Umbilical hernia with obstruction, without gangrene; Z68.41 Body mass index [BMI] 40.0-44.9, adult; R73.03 Prediabetes; Z79.890 Hormone replacement therapy; L50.8 Other urticaria; C79.89 Secondary malignant neoplasm of other specified sites; E03.9 Hypothyroidism, unspecified; Z88.2 Allergy status to sulfonamides; R00.0 Tachycardia, unspecified; I10 Essential (primary) hypertension; J45.909 Unspecified asthma, uncomplicated; Z88.8 Allergy status to other drugs, medicaments and biological substances; C78.7 Secondary malignant neoplasm of liver and intrahepatic bile duct; K76.0 Fatty (change of) liver, not elsewhere classified; R53.83 Other fatigue; F17.290 Nicotine dependence, other tobacco product, uncomplicated; E78.5 Hyperlipidemia, unspecified; Z82.49 Family history of ischemic heart disease and other diseases of the circulatory system; Z88.1 Allergy status to other antibiotic agents; Z79.899 Other long term (current) drug therapy; F31.9 Bipolar disorder, unspecified; Z91.013 Allergy to seafood; C18.7 Malignant neoplasm of sigmoid colon; D62 Acute posthemorrhagic anemia; Z91.048 Other nonmedicinal substance allergy status; F41.1 Generalized anxiety disorder; Z79.84 Long term (current) use of oral hypoglycemic drugs; T50.915A Adverse effect of multiple unspecified drugs, medicaments and biological substances, initial encounter